=== PATIENT | male | born 1955 | race Caucasian/White ===

== ENCOUNTER 2017-07-29 11:24 | Inpatient (IN) | payer MEDICAID ==
--- NOTE | 2017-07-29 12:19 | EDM.PDOC ---
ED HPI GENERAL MEDICAL PROBLEM - General Chief Complaint: Respiratory Problem Stated Complaint: ILLNESS Time Seen by Provider: 07/29/17 12:11 Source of Information: Reports: Patient History Limitations: Reports: No Limitations - History of Present Illness INITIAL COMMENTS - FREE TEXT/NARRATIVE: pt has been more constipated. He is having more difficulty passing his urine. Onset: Gradual Duration: Day(s):, Other (Pt hs not been feeling well for about 2 weeks. When he is on the predisone and antibiotic he improves but then he gets worse. ) Location: Reports: Face, Chest Associated Symptoms: Reports: Weakness - Related Data Allergies Allergy/AdvReac Type Severity Reaction Status Date / Time Egg Derived Allergy Cannot Verified 07/29/17 11:42 Remember hylan G-F 20 [From Synvisc] Allergy Cannot Verified 07/29/17 11:42 Remember tramadol Allergy Cannot Verified 07/29/17 11:42 Remember celecoxib [From Celebrex] AdvReac Nausea Verified 07/29/17 11:42 Home Meds: Home Meds Albuterol [Ventolin HFA] 2 puff INH Q4H PRN 11/22/16 [History] Tamsulosin [Flomax] 0.4 mg PO BEDTIME #90 cap.er 11/23/16 [Rx] Past Medical History HEENT History: Reports: Impaired Vision Other HEENT History: reading glasses Respiratory History: Reports: COPD Musculoskeletal History: Reports: Fracture, Other (See Below) Other Musculoskeletal History: low back pain. L hip pain Psychiatric History: Reports: Depression Endocrine/Metabolic History: Reports: Obesity/BMI 30+ - Infectious Disease History Infectious Disease History: Reports: Chicken Pox, Measles - Past Surgical History GI Surgical History: Reports: Colonoscopy Musculoskeletal Surgical History: Reports: Knee Replacement, Other (See Below) Other Musculoskeletal Surgeries/Procedures:: R TKA 2016 Social & Family History - Family History HEENT: Reports: Impaired Vision Cardiac: Reports: Bypass, Heart Failure, [place] Respiratory: Reports: COPD OBGYN: Reports: Recurrent Spontaneous Musculoskeletal: Reports: Back pain, Chronic Neurological: Reports: Dementia Psychiatric: Reports: Bipolar - Tobacco Use Smoking Status *Q: Current Every Day Smoker Years of Tobacco use: 30 Packs/Tins Daily: 1 Used Tobacco, but Quit: No Second Hand Smoke Exposure: Yes - Caffeine Use Caffeine Use: Reports: Coffee - Recreational Drug Use Recreational Drug Use: No ED ROS GENERAL - Review of Systems Review Of Systems: See Below Constitutional: Reports: Malaise, Decreased Appetite, Other ( constipation) HEENT: Reports: Other (nasal stuffiness and feeling like he has ringing in his ears, slight dizziness. ) Respiratory: Reports: Shortness of Breath Cardiovascular: Reports: No Symptoms Endocrine: Reports: No Symptoms GI/Abdominal: Reports: Other (Pain in left lower abdoman. ) : Reports: No Symptoms Musculoskeletal: Reports: No Symptoms, Muscle Pain Neurological: Reports: No Symptoms Psychiatric: Reports: No Symptoms ED EXAM, GENERAL - Physical Exam Exam: See Below Free Text/Narrative:: pt arrived with nasal stuffiness and ringing in his ears. He does have pain in left abdoman which comes and goes 4 or 5 times daily. Exam Limited By: No Limitations General Appearance: Alert, Mild Distress Ears: Normal TMs Nose: Normal Inspection Throat/Mouth: Normal Inspection Head: Atraumatic Neck: Normal Inspection Respiratory/Chest: No Respiratory Distress Cardiovascular: Regular Rate, Rhythm GI/Abdominal: Other (Pt has tenderness in the left lower abdoman. He is particularly tender in the area close to the bladder. ) (Male) Exam: Deferred Rectal (Males) Exam: Deferred Back Exam: Normal Inspection Extremities: Normal Inspection Neurological: Alert, Oriented, Normal Cognition Psychiatric: Flat Affect Course - Vital Signs Last Recorded V/S: Last Vital Signs Temp 36.9 C 07/29/17 12:00 Pulse 119 H 07/29/17 12:00 Resp 20 07/29/17 12:00 BP 154/81 H 07/29/17 12:00 Pulse Ox 98 07/29/17 12:00 - Orders/Labs/Meds Orders: Active Orders 24 hr Category Date Time Status Abdomen Pelvis w Cont [CT] Stat Exams 07/29/17 13:15 Taken Chest 2V [CR] Stat Exams 07/29/17 12:20 Taken Sinus Less 3V [CR] Stat Exams 07/29/17 12:20 Taken Levofloxacin/Dextrose 5%-Water [Levaquin in D5W 500 MG/ Med 07/29/17 15:30 Ordered 100 ML] 500 mg Premix Bag 1 bag IV ONETIME Sodium Chloride 0.9% [Normal Saline] 1,000 ml Med 07/29/17 15:30 Ordered IV ASDIRECTED Sodium Chloride 0.9% [Normal Saline] 100 ml Med 07/29/17 13:30 Active IV ASDIRECTED Medication Orders Sodium Chloride (Normal Saline) 100 mls @ 3 mls/sec IV ASDIRECTED LUCERO Last Admin: 07/29/17 14:10 Dose: 3 mls/sec Sodium Chloride (Normal Saline) 1,000 mls @ 999 mls/hr IV ASDIRECTED LUCERO Levofloxacin/Dextrose 500 mg/ (Premix) 100 mls @ 100 mls/hr IV ONETIME ONE Stop: 07/29/17 16:29 Labs: Laboratory Tests 07/29/17 07/29/17 07/29/17 Range/Units 12:20 12:20 12:20 WBC 9.7 (4.5-11.0) K/uL RBC 4.56 (4.30-5.90) M/uL Hgb 14.6 (12.0-15.0) g/dL Hct 44.6 (40.0-54.0) % MCV 98 (80-98) fL MCH 32 H (27-31) pg MCHC 33 (32-36) % Plt Count 173 (150-400) K/uL Neut % (Auto) 79 H (36-66) % Lymph % (Auto) 11 L (24-44) % Gates % (Auto) 10 H (2-6) % Eos % (Auto) 0 L (2-4) % Baso % (Auto) 0 (0-1) % Sodium 136 L (140-148) mmol/L Potassium 4.6 (3.6-5.2) mmol/L Chloride 101 (100-108) mmol/L Carbon Dioxide 27 (21-32) mmol/L Anion Gap 12.6 (5.0-14.0) mmol/L BUN 17 (7-18) mg/dL Creatinine 1.1 (0.8-1.3) mg/dL Est Cr Clr Drug Dosing 79.70 mL/min Estimated GFR (MDRD) > 60 (>60) Glucose 132 H (74-106) mg/dL Calcium 8.7 (8.5-10.1) mg/dL Total Bilirubin 0.9 D (0.2-1.0) mg/dL AST 15 (15-37) U/L ALT 21 (12-78) U/L Alkaline Phosphatase 91 (46-116) U/L C-Reactive Protein 15.54 H (0.0-0.3) mg/dL Total Protein 7.2 (6.4-8.2) g/dL Albumin 3.2 L (3.4-5.0) g/dL Globulin 4.0 H (2.3-3.5) g/dL Albumin/Globulin Ratio 0.8 L (1.2-2.2) Urine Color Urine Appearance Urine pH (4.5-8.0) Ur Specific [place] (1.008-1.030) Urine Protein (NEGATIVE) mg/dL Urine Glucose (UA) (NEGATIVE) mg/dL Urine Ketones (NEGATIVE) mg/dL Urine Occult Blood (NEGATIVE) Urine Nitrite (NEGAITVE) Urine Bilirubin (NEGATIVE) Urine Urobilinogen (NORMAL) mg/dL Ur Leukocyte Esterase (NEGATIVE) Urine RBC (0-5) Urine WBC (0-5) Ur Epithelial Cells Amorphous Sediment Urine Bacteria Urine Mucus 07/29/17 Range/Units 13:38 WBC (4.5-11.0) K/uL RBC (4.30-5.90) M/uL Hgb (12.0-15.0) g/dL Hct (40.0-54.0) % MCV (80-98) fL MCH (27-31) pg MCHC (32-36) % Plt Count (150-400) K/uL Neut % (Auto) (36-66) % Lymph % (Auto) (24-44) % [place] % (Auto) (2-6) % Eos % (Auto) (2-4) % Baso % (Auto) (0-1) % Sodium (140-148) mmol/L Potassium (3.6-5.2) mmol/L Chloride (100-108) mmol/L Carbon Dioxide (21-32) mmol/L Anion Gap (5.0-14.0) mmol/L BUN (7-18) mg/dL Creatinine (0.8-1.3) mg/dL Est Cr Clr Drug Dosing mL/min Estimated GFR (MDRD) (>60) Glucose (74-106) mg/dL Calcium (8.5-10.1) mg/dL Total Bilirubin (0.2-1.0) mg/dL AST (15-37) U/L ALT (12-78) U/L Alkaline Phosphatase (46-116) U/L C-Reactive Protein (0.0-0.3) mg/dL Total Protein (6.4-8.2) g/dL Albumin (3.4-5.0) g/dL Globulin (2.3-3.5) g/dL Albumin/Globulin Ratio (1.2-2.2) Urine Color Yellow Urine Appearance Clear Urine pH 6.0 (4.5-8.0) Ur Specific [place] 1.015 (1.008-1.030) Urine Protein 30 H (NEGATIVE) mg/dL Urine Glucose (UA) Normal (NEGATIVE) mg/dL Urine Ketones Negative (NEGATIVE) mg/dL Urine Occult Blood Trace (NEGATIVE) Urine Nitrite Negative (NEGAITVE) Urine Bilirubin Small (NEGATIVE) Urine Urobilinogen 4 (NORMAL) mg/dL Ur Leukocyte Esterase Negative (NEGATIVE) Urine RBC 5-10 H (0-5) Urine WBC 0-5 (0-5) Ur Epithelial Cells Few Amorphous Sediment Not seen Urine Bacteria Not seen Urine Mucus Few Meds: Medications Generic Name Dose Route Start Last Admin Trade Name Freq PRN Reason Stop Dose Admin Sodium Chloride 100 mls @ 3 mls/sec 07/29/17 13:30 07/29/17 14:10 Normal Saline IV 3 mls/sec ASDIRECTED [facility] Administration Sodium Chloride 1,000 mls @ 999 mls/hr 07/29/17 15:30 Normal Saline IV ASDIRECTED LUCERO Levofloxacin/Dextrose 500 mg/ 100 mls @ 100 mls/hr 07/29/17 15:30 Premix IV 07/29/17 16:29 ONETIME ONE Discontinued Medications Generic Name Dose Route Start Last Admin Trade Name Freq PRN Reason Stop Dose Admin Iopamidol 150 ml 07/29/17 13:30 07/29/17 14:10 Isovue-300 (61%) IV 150 ml . DIRECTED [facility] Administration - Re-Assessments/Exams Free Text/Narrative Re-Assessment/Exam: 07/29/17 15:39 cbc was normal. his sinuses were clear but he has alot of swellin in the mucous membranes, His chest xray is clear. His crp is greater than 15. He had a cat scan of the abdoman pelvis which reveals a intramural abcess in the wall of the sigmoid colon from diverticulitis Departure - Departure Time of Disposition: 15:41 Disposition: Admitted As Inpatient 66 Condition: Fair Clinical Impression: Diverticulitis large intestine, Rhinitis - Discharge Information Referrals: Mat Sahu NP [Primary Care Provider] - Forms: ED Department Discharge Care Plan Goals: admit to Dr gaytan - My Orders Last 24 Hours: My Active Orders 07/29/17 12:20 Chest 2V [CR] Stat Sinus Less 3V [CR] Stat 07/29/17 13:15 Abdomen Pelvis w Cont [CT] Stat 07/29/17 13:30 Sodium Chloride 0.9% [Normal Saline] 100 ml IV ASDIRECTED 07/29/17 15:30 Levofloxacin/Dextrose 5%-Water [Levaquin in D5W 500 MG/100 ML] 500 mg Premix Bag 1 bag IV ONETIME Sodium Chloride 0.9% [Normal Saline] 1,000 ml IV ASDIRECTED - Assessment/Plan Last 24 Hours: My Active Orders 07/29/17 12:20 Chest 2V [CR] Stat Sinus Less 3V [CR] Stat 07/29/17 13:15 Abdomen Pelvis w Cont [CT] Stat 07/29/17 13:30 Sodium Chloride 0.9% [Normal Saline] 100 ml IV ASDIRECTED 07/29/17 15:30 Levofloxacin/Dextrose 5%-Water [Levaquin in D5W 500 MG/100 ML] 500 mg Premix Bag 1 bag IV ONETIME Sodium Chloride 0.9% [Normal Saline] 1,000 ml IV ASDIRECTED
[2017-07-29] MEDS ORDERED: Iopamidol 612 MG/ML 150 ML Bottle IV SCH (13:30)
[2017-07-29] MEDS ORDERED: Sodium Chloride 0.9% 100 ML IV SCH (13:30)
[2017-07-29] MEDS ORDERED: Sodium Chloride 0.9% 1,000 ML IV SCH (15:30)
[2017-07-29] MEDS ORDERED: Levofloxacin/Dextrose 5%-Water 500 MG in Premix Bag 1 BAG IV ONE (15:30)
[2017-07-29] MEDS ORDERED: Lactated Ringers 1,000 ML IV SCH (16:00)
[2017-07-29] MEDS ORDERED: Acetaminophen 325 MG Tab PO PRN (16:08)
[2017-07-29] MEDS ORDERED: Ondansetron 4 MG/2 ML SDV IV PRN (16:08)
[2017-07-29] MEDS ORDERED: Albuterol 8 GM Inhaler INH PRN (16:08)
[2017-07-29] MEDS ORDERED: oxyCODONE 5 MG Tab PO PRN (16:08)
[2017-07-29] MEDS ORDERED: HYDROmorphone 0.5 MG/0.5 ML Syringe IVPUSH PRN (16:08)
[2017-07-29] MEDS ORDERED: Sodium Chloride 0.9% 10 ML Syringe FLUSH PRN (16:08)
--- NOTE | 2017-07-29 16:10 | PCM.HP ---
H&P History of Present Illness - General Date of Service: 07/29/17 Admit Problem/Dx: Source of Information: Patient, Provider, RN Notes Reviewed History Limitations: Reports: No Limitations - History of Present Illness Initial Comments - Free Text/Narative: Mr. Doshi is a 61-year-old gentleman who is admitted through the emergency department with fever and abdominal pain secondary to diverticulitis with intramural abscess. Not felt well for the past several weeks, which he relates to intermittent episodes of vertigo. Over the past week has developed left lower quadrant abdominal pain that radiates across to the right abdomen. Pain is described as cramping sensation and seems to come and go, it is of moderate severity. He has had no diarrhea in fact reports that he is been somewhat, constipated. He denies any symptoms of nausea vomiting, but his appetite has been diminished. He is noted no precipitating or relieving factors. On evaluation in the emergency department his white blood cell count is normal, he is mild to moderately tachycardic. CT scan of the abdomen shows evidence of diverticulitis with an intramural diverticular abscess. Reviewed with the on- call surgeon Dr. Caraballo, because the abscess is intramural it does not require percutaneous drainage. - Related Data Allergies/Adverse Reactions: Allergies Allergy/AdvReac Type Severity Reaction Status Date / Time Egg Derived Allergy Cannot Verified 07/29/17 11:42 Remember hylan G-F 20 [From Synvisc] Allergy Cannot Verified 07/29/17 11:42 Remember tramadol Allergy Cannot Verified 07/29/17 11:42 Remember celecoxib [From Celebrex] AdvReac Nausea Verified 07/29/17 11:42 Home Medications: Home Meds Albuterol [Ventolin HFA] 2 puff INH Q4H PRN 11/22/16 [History] Tamsulosin [Flomax] 0.4 mg PO BEDTIME #90 cap.er 11/23/16 [Rx] Past Medical History HEENT History: Reports: Impaired Vision Other HEENT History: reading glasses Respiratory History: Reports: COPD Musculoskeletal History: Reports: Fracture, Other (See Below) Other Musculoskeletal History: low back pain. L hip pain Psychiatric History: Reports: Depression Endocrine/Metabolic History: Reports: Obesity/BMI 30+ - Infectious Disease History Infectious Disease History: Reports: Chicken Pox, Measles - Past Surgical History GI Surgical History: Reports: Colonoscopy Musculoskeletal Surgical History: Reports: Knee Replacement, Other (See Below) Other Musculoskeletal Surgeries/Procedures:: R TKA 2016 Social & Family History - Family History HEENT: Reports: Impaired Vision Cardiac: Reports: Bypass, Heart Failure, [place] Respiratory: Reports: COPD OBGYN: Reports: Recurrent Spontaneous Musculoskeletal: Reports: Back pain, Chronic Neurological: Reports: Dementia Psychiatric: Reports: Bipolar - Tobacco Use Smoking Status *Q: Current Every Day Smoker Years of Tobacco use: 30 Packs/Tins Daily: 1 Used Tobacco, but Quit: No Second Hand Smoke Exposure: Yes - Caffeine Use Caffeine Use: Reports: Coffee - Recreational Drug Use Recreational Drug Use: No H&P Review of Systems - Review of Systems: Review Of Systems: See Below General: Reports: Fever, Chills, Weakness, Decreased Appetite HEENT: Reports: No Symptoms Pulmonary: Reports: No Symptoms Cardiovascular: Reports: No Symptoms Gastrointestinal: Reports: Abdominal Pain, Anorexia. Denies: Black Stool, Bloody Stool, Diarrhea, Difficulty Swallowing, Distension, Nausea, Vomiting Genitourinary: Reports: Retention. Denies: Dysuria, Frequency, Burning, Pain Musculoskeletal: Reports: No Symptoms Skin: Reports: No Symptoms Psychiatric: Reports: No Symptoms Neurological: Reports: No Symptoms Hematologic/Lymphatic: Reports: No Symptoms Immunologic: Reports: No Symptoms Exam - Exam Exam: See Below - Vital Signs Vital Signs: Last Vital Signs Temp 98.5 F 07/29/17 12:00 Pulse 119 H 07/29/17 12:00 Resp 20 07/29/17 12:00 BP 154/81 H 07/29/17 12:00 Pulse Ox 98 07/29/17 12:00 Weight: 276 lb 3.827 oz - Exam Quality Assessment: DVT Prophylaxis General: Alert, Oriented, Cooperative, Moderate Distress HEENT: Conjunctiva Clear, Hearing Intact, Normal Nasal Septum, Posterior Pharynx Clear, Pupils Equal. No: Mucosa Moist & [place] Neck: Supple, Trachea Midline, +2 Carotid Pulse wo Bruit Lungs: Clear to Auscultation, Normal Respiratory Effort Cardiovascular: Regular Rate, Regular Rhythm, Normal S1, Normal S2. No: Systolic Murmur, Diastolic Murmur GI/Abdominal Exam: Soft, No Organomegaly, Tender. No: Distended, Guarding, Rigid, Rebound Back Exam: Normal Inspection, Full Range of Motion Extremities: Non-Tender, No Pedal Edema Skin: Warm, Dry, Intact Neurological: Cranial Nerves Intact, Strength Equal Bilateral, Normal Speech, Normal Tone, Sensation Intact. No: Focal Deficit Neuro Extensive - Mental Status: Alert, Oriented x3, Normal Mood/Affect, Normal Cognition, Memory Intact - Patient Data Lab Results Last 24 hrs: Laboratory Results - last 24 hr 07/29/17 07/29/17 07/29/17 Range/Units 12:20 12:20 12:20 WBC 9.7 (4.5-11.0) K/uL RBC 4.56 (4.30-5.90) M/uL Hgb 14.6 (12.0-15.0) g/dL Hct 44.6 (40.0-54.0) % MCV 98 (80-98) fL MCH 32 H (27-31) pg MCHC 33 (32-36) % Plt Count 173 (150-400) K/uL Neut % (Auto) 79 H (36-66) % Lymph % (Auto) 11 L (24-44) % Lares % (Auto) 10 H (2-6) % Eos % (Auto) 0 L (2-4) % Baso % (Auto) 0 (0-1) % Sodium 136 L (140-148) mmol/L Potassium 4.6 (3.6-5.2) mmol/L Chloride 101 (100-108) mmol/L Carbon Dioxide 27 (21-32) mmol/L Anion Gap 12.6 (5.0-14.0) mmol/L BUN 17 (7-18) mg/dL Creatinine 1.1 (0.8-1.3) mg/dL Est Cr Clr Drug Dosing 79.70 mL/min Estimated GFR (MDRD) > 60 (>60) Glucose 132 H (74-106) mg/dL Calcium 8.7 (8.5-10.1) mg/dL Total Bilirubin 0.9 D (0.2-1.0) mg/dL AST 15 (15-37) U/L ALT 21 (12-78) U/L Alkaline Phosphatase 91 (46-116) U/L C-Reactive Protein 15.54 H (0.0-0.3) mg/dL Total Protein 7.2 (6.4-8.2) g/dL Albumin 3.2 L (3.4-5.0) g/dL Globulin 4.0 H (2.3-3.5) g/dL Albumin/Globulin Ratio 0.8 L (1.2-2.2) Urine Color Urine Appearance Urine pH (4.5-8.0) Ur Specific [place] (1.008-1.030) Urine Protein (NEGATIVE) mg/dL Urine Glucose (UA) (NEGATIVE) mg/dL Urine Ketones (NEGATIVE) mg/dL Urine Occult Blood (NEGATIVE) Urine Nitrite (NEGAITVE) Urine Bilirubin (NEGATIVE) Urine Urobilinogen (NORMAL) mg/dL Ur Leukocyte Esterase (NEGATIVE) Urine RBC (0-5) Urine WBC (0-5) Ur Epithelial Cells Amorphous Sediment Urine Bacteria Urine Mucus 07/29/17 Range/Units 13:38 WBC (4.5-11.0) K/uL RBC (4.30-5.90) M/uL Hgb (12.0-15.0) g/dL Hct (40.0-54.0) % MCV (80-98) fL MCH (27-31) pg MCHC (32-36) % Plt Count (150-400) K/uL Neut % (Auto) (36-66) % Lymph % (Auto) (24-44) % Lares % (Auto) (2-6) % Eos % (Auto) (2-4) % Baso % (Auto) (0-1) % Sodium (140-148) mmol/L Potassium (3.6-5.2) mmol/L Chloride (100-108) mmol/L Carbon Dioxide (21-32) mmol/L Anion Gap (5.0-14.0) mmol/L BUN (7-18) mg/dL Creatinine (0.8-1.3) mg/dL Est Cr Clr Drug Dosing mL/min Estimated GFR (MDRD) (>60) Glucose (74-106) mg/dL Calcium (8.5-10.1) mg/dL Total Bilirubin (0.2-1.0) mg/dL AST (15-37) U/L ALT (12-78) U/L Alkaline Phosphatase (46-116) U/L C-Reactive Protein (0.0-0.3) mg/dL Total Protein (6.4-8.2) g/dL Albumin (3.4-5.0) g/dL Globulin (2.3-3.5) g/dL Albumin/Globulin Ratio (1.2-2.2) Urine Color Yellow Urine Appearance Clear Urine pH 6.0 (4.5-8.0) Ur Specific [place] 1.015 (1.008-1.030) Urine Protein 30 H (NEGATIVE) mg/dL Urine Glucose (UA) Normal (NEGATIVE) mg/dL Urine Ketones Negative (NEGATIVE) mg/dL Urine Occult Blood Trace (NEGATIVE) Urine Nitrite Negative (NEGAITVE) Urine Bilirubin Small (NEGATIVE) Urine Urobilinogen 4 (NORMAL) mg/dL Ur Leukocyte Esterase Negative (NEGATIVE) Urine RBC 5-10 H (0-5) Urine WBC 0-5 (0-5) Ur Epithelial Cells Few Amorphous Sediment Not seen Urine Bacteria Not seen Urine Mucus Few Result Diagrams: 07/29/17 12:20 07/29/17 12:20 *Q Meaningful Use (ADM) - VTE *Q VTE Criteria *Q: - VTE Risk Assess *Q Each Risk Factor Represents 1 Point: Obesity ( BMI > 25 kg/m2) Total Score 1 Point Risk Factors: 1 Each Risk Factor Represents 2 Points: Age 60 - 74 Years Total Score 2 Point Risk Factors: 2 Each Risk Factor Represents 3 Points: None Total Score 3 Point Risk Factors: 0 Each Risk Factor Represents 5 Points: None Total Score 5 Point Risk Factors: 0 Venous Thromboembolism Risk Factor Score *Q: 3 - Stroke *Q Stroke Criteria *Q: - AMI *Q AMI Criteria *Q: Problem List Initiated/Reviewed/Updated: Yes Orders Last 24hrs: Active Orders 24 hr Category Date Time Status Patient Status Manage Transfer [TRANSFER] Routine ADT 07/29/17 15:52 Ordered Abdomen Pelvis w Cont [CT] Stat Exams 07/29/17 13:15 Taken Chest 2V [CR] Stat Exams 07/29/17 12:20 Taken Sinus Less 3V [CR] Stat Exams 07/29/17 12:20 Taken Ampicillin/Sulbactam Na [Unasyn] 3 gm Med 07/29/17 16:00 Ordered Sodium Chloride 0.9% [Normal Saline] 100 ml IV Q6H Lactated Ringers [Ringers, Lactated] 1,000 ml Med 07/29/17 16:00 Ordered IV ASDIRECTED Levofloxacin/Dextrose 5%-Water [Levaquin in D5W 500 MG/ Med 07/29/17 15:30 Active 100 ML] 500 mg Premix Bag 1 bag IV ONETIME Sodium Chloride 0.9% [Normal Saline] 1,000 ml Med 07/29/17 15:30 Active IV ASDIRECTED Sodium Chloride 0.9% [Normal Saline] 100 ml Med 07/29/17 13:30 Active IV ASDIRECTED Resuscitation Status Routine Resus Stat 07/29/17 15:53 Ordered Medication Orders Sodium Chloride (Normal Saline) 100 mls @ 3 mls/sec IV ASDIRECTED LUCERO Last Admin: 07/29/17 14:10 Dose: 3 mls/sec Sodium Chloride (Normal Saline) 1,000 mls @ 999 mls/hr IV ASDIRECTED LUCERO Levofloxacin/Dextrose 500 mg/ (Premix) 100 mls @ 100 mls/hr IV ONETIME ONE Stop: 07/29/17 16:29 Ampicillin Sodium/Sulbactam (Sodium 3 gm/ Sodium Chloride) 100 mls @ 200 mls/ hr IV Q6H LUCERO Lactated Ringer's (Ringers, Lactated) 1,000 mls @ 500 mls/hr IV ASDIRECTED LUCERO Stop: 07/29/17 20:01 Assessment/Plan Comment:: ASSESSMENT AND PLAN DIVERTICULITIS WITH AN INTRAMURAL ABSCESS-symptoms present over the past several days, significantly worse today. He has developed marked weakness and reports fever and chills at home with diaphoresis. Appetite has been severely decreased over the past 24 hours. White blood cell count is normal, CT scan documents diverticulitis and abscess. -IV fluids for hydration -Clear liquid diet -Unasyn 3 g IV every 6 hours -Consult Dr. Caraballo for surgical follow-up and assistance in management BPH WITH BLADDER OUTLET OBSTRUCTION-he reports recent difficulty with passing urine -Monitor urine output and monitor bladder with bladder scan -Continue current therapy with Flomax BENIGN POSITIONAL VERTIGO-symptoms over the past several weeks MAINTENANCE ISSUES -DVT prophylaxis; Lovenox 40 mg subcutaneous daily -GI prophylaxis; not indicated -Cortes catheter; not yet indicated -Nutrition; clear liquid diet -Nicotine dependence; [id number] smoking history, denies need for nicotine patch CODE STATUS-FULL CODE ADMISSION STATUS-patient will be admitted to inpatient status, expect at least a 2 night hospital stay for evaluation and management of problems as outlined above. At the time of this admission I do not reasonably expected evaluation and management of this problem will require more than a 96 hour hospital stay. DISPOSITION-anticipate discharge to home after the hospital stay. PRIMARY CARE PROVIDER-Adonis Sahu
[2017-07-29] MEDS ORDERED: Ampicillin/Sulbactam Na 3 GM Vial ONE (16:20)
[2017-07-29] MEDS ORDERED: Sodium Chloride 0.9% 100 ML ONE (16:22)
[2017-07-29] MEDS: Ampicillin/Sulbactam Na 3 GM in Sodium Chloride 0.9% 100 ML IV SCH ×2 (16:36→21:48)
[2017-07-29] MEDS: Enoxaparin 40 MG/0.4 ML Syringe SUBCUT SCH (17:22)
[2017-07-29] MEDS: Lactated Ringers 1,000 ML IV SCH (19:22)
[2017-07-29] MEDS: Tamsulosin 0.4 MG Cap.ER PO SCH (20:33)
[2017-07-29] MEDS: Fluticasone Propionate Nasal Spray 16 GM Bottle NASBOTH SCH (20:37)
[2017-07-30] MEDS: Lactated Ringers 1,000 ML IV SCH (02:50)
[2017-07-30] MEDS: Ampicillin/Sulbactam Na 3 GM in Sodium Chloride 0.9% 100 ML IV SCH ×4 (04:56→21:03)
[2017-07-30] MEDS: Fluticasone Propionate Nasal Spray 16 GM Bottle NASBOTH SCH (08:07)
--- NOTE | 2017-07-30 10:40 | PCM.PN ---
- General Info Date of Service: 07/30/17 - Review of Systems General: Denies: Fever Gastrointestinal: Reports: Abdominal Pain. Denies: Diarrhea Systems Review Comment:: no acute events overnight. Ongoing mild left lower quadrant pain but no acute pains. No diarrhea. White blood cell count is normal and he has not had any fevers. Tolerating clear liquids. - Patient Data Vitals - Most Recent: Last Vital Signs Temp 37.2 C 07/30/17 08:01 Pulse 92 07/30/17 08:01 Resp 16 07/30/17 08:01 BP 146/86 H 07/30/17 08:01 Pulse Ox 96 07/30/17 08:01 Weight - Most Recent: 125.3 kg I&O - Last 24 Hours: Intake & Output 07/29/17 07/30/17 07/30/17 22:59 06:59 14:59 Intake Total 700 2300 840 Output Total 200 1150 300 Balance 500 1150 540 Lab Results Last 24 Hours: Laboratory Results - last 24 hr 07/30/17 07/30/17 Range/Units 06:05 06:05 WBC 7.1 (4.5-11.0) K/uL RBC 4.01 L (4.30-5.90) M/uL Hgb 12.6 D (12.0-15.0) g/dL Hct 39.3 L (40.0-54.0) % MCV 98 (80-98) fL MCH 31 (27-31) pg MCHC 32 (32-36) % Plt Count 162 (150-400) K/uL Neut % (Auto) 73 H (36-66) % Lymph % (Auto) 16 L (24-44) % [place] % (Auto) 11 H (2-6) % Eos % (Auto) 1 L (2-4) % Baso % (Auto) 0 (0-1) % Sodium 139 L (140-148) mmol/L Potassium 4.0 (3.6-5.2) mmol/L Chloride 105 (100-108) mmol/L Carbon Dioxide 27 (21-32) mmol/L Anion Gap 11.0 (5.0-14.0) mmol/L BUN 12 (7-18) mg/dL Creatinine 1.0 (0.8-1.3) mg/dL Est Cr Clr Drug Dosing 87.67 mL/min Estimated GFR (MDRD) > 60 (>60) Glucose 107 H (74-106) mg/dL Calcium 8.5 (8.5-10.1) mg/dL Med Orders - Current: Current Medications Acetaminophen (Tylenol) 650 mg PO Q4H PRN PRN Reason: Pain (Mild 1-3)/fever Last Admin: 07/29/17 23:17 Dose: 650 mg Albuterol (Ventolin Hfa) 0 gm INH Q4H PRN PRN Reason: Shortness of Breath Enoxaparin Sodium (Lovenox) 40 mg SUBCUT DAILY@1700 [facility] Last Admin: 07/29/17 17:22 Dose: 40 mg Fluticasone Propionate (Flonase) 0 gm NASBOTH DAILY [facility] Last Admin: 07/30/17 08:07 Dose: 2 spray Hydromorphone HCl (Dilaudid) 0.5 mg IVPUSH Q2H PRN PRN Reason: Pain Ampicillin Sodium/Sulbactam (Sodium 3 gm/ Sodium Chloride) 100 mls @ 200 mls/ hr IV Q6H [facility] Last Admin: 07/30/17 09:40 Dose: 200 mls/hr Lactated Ringer's (Ringers, Lactated) 1,000 mls @ 125 mls/hr IV ASDIRECTED [facility] Last Admin: 07/30/17 02:50 Dose: 125 mls/hr Ondansetron HCl (Zofran) 4 mg IV Q4H PRN PRN Reason: Nausea/Vomiting Oxycodone HCl (Oxycodone) 5 mg PO Q4H PRN PRN Reason: Pain (moderate 4-6) Sodium Chloride (Saline Flush) 10 ml FLUSH ASDIRECTED PRN PRN Reason: Keep Vein Open Tamsulosin HCl (Flomax) 0.4 mg PO BEDTIME [facility] Last Admin: 07/29/17 20:33 Dose: 0.4 mg Discontinued Medications Ampicillin Sodium/Sulbactam Sodium (Unasyn) Confirm Administered Dose 3 gm .ROUTE .STK-MED ONE Stop: 07/29/17 16:21 Last Admin: 07/29/17 16:37 Dose: Not Given Sodium Chloride (Normal Saline) 100 mls @ 3 mls/sec IV ASDIRECTED [facility] Last Admin: 07/29/17 14:10 Dose: 3 mls/sec Sodium Chloride (Normal Saline) 1,000 mls @ 999 mls/hr IV ASDIRECTED [facility] Levofloxacin/Dextrose 500 mg/ (Premix) 100 mls @ 100 mls/hr IV ONETIME ONE Stop: 07/29/17 16:29 Last Admin: 07/29/17 16:30 Dose: Not Given Lactated Ringer's (Ringers, Lactated) 1,000 mls @ 500 mls/hr IV ASDIRECTED [facility] Stop: 07/29/17 20:01 Last Admin: 07/29/17 16:36 Dose: 500 mls/hr Sodium Chloride (Normal Saline) Confirm Administered Dose 100 mls @ as directed .ROUTE .STK-MED ONE Stop: 07/29/17 16:23 Last Admin: 07/29/17 16:51 Dose: 100 ml Iopamidol (Isovue-300 (61%)) 150 ml IV . DIRECTED [facility] Last Admin: 07/29/17 14:10 Dose: 150 ml - Exam Quality Assessment: No: Supplemental Oxygen General: Alert, Oriented, Cooperative, No Acute Distress Neck: Supple Lungs: Normal Respiratory Effort GI/Abdominal Exam: Normal Bowel Sounds, Soft, No Distention, Guarding (mild), Tender (LLQ) Extremities: No Pedal Edema Skin: Warm, Dry Psy/Mental Status: Alert, Normal Affect - Problem List Review Problem List Initiated/Reviewed/Updated: Yes - My Orders Last 24 Hours: My Active Orders 07/30/17 10:45 Lactated Ringers [Ringers, Lactated] 1,000 ml IV ASDIRECTED - Plan Plan:: ASSESSMENT AND PLAN DIVERTICULITIS WITH AN INTRAMURAL ABSCESS - pain is a little better today with no severe wavelike pain. No fevers. White count still normal. patient will need several days of IV antibiotics before attempted transition to oral antibiotics. -continue IV fluids -Clear liquid diet -Unasyn 3 g IV every 6 hours -Consult Dr. Caraballo for surgical follow-up and assistance in management BPH WITH BLADDER OUTLET OBSTRUCTION - he reports recent difficulty with passing urine, no major issues during the hospital stay so far. -Monitor urine output and monitor bladder with bladder scan -Continue current therapy with Flomax BENIGN POSITIONAL VERTIGO - symptoms over the past several weeks. he does have cerumen impaction on physical examination. -Debrox drops today and will attempt to remove tomorrow MAINTENANCE ISSUES -DVT prophylaxis; Lovenox 40 mg subcutaneous daily -GI prophylaxis; not indicated -Cortes catheter; not yet indicated -Nutrition; clear liquid diet -Nicotine dependence; [id number] smoking history, denies need for nicotine patch DISPOSITION - anticipate discharge to home after the hospital stay. Mario Nassar M.D.
[2017-07-30] MEDS ORDERED: Lactated Ringers 1,000 ML IV SCH (10:45)
--- NOTE | 2017-07-30 16:26 | PCM.CONS ---
H&P History of Present Illness - General Date of Service: 07/30/17 Admit Problem/Dx: Source of Information: Patient, Provider History Limitations: Reports: No Limitations - History of Present Illness Initial Comments - Free Text/Narative: This 61 year old white male says he felt dizzy and next thing he knew he was in the hospital. He says that yesterday he had significant left lower quadrant abdominal pain with guarding, today it is much improved. He has had a small bowel movement and is passing gas. He was found on CT of his abdomen/pelvis to have a 2.4 cm in maximum dimension diverticular abscess in the wall of his sigmoid colon. No free perforation. He was admitted and placed on IV antibiotics. Onset of Symptoms: Reports: Other Symptom Onset Date: 07/29/17 Location: Reports: Abdomen Quality: Reports: Sharp Severity: Moderate Improves with: Reports: Immobilization Worsens with: Reports: Movement Associated Symptoms: Reports: No Other Symptoms - Related Data Allergies/Adverse Reactions: Allergies Allergy/AdvReac Type Severity Reaction Status Date / Time Egg Derived Allergy Cannot Verified 07/29/17 11:42 Remember hylan G-F 20 [From Synvisc] Allergy Cannot Verified 07/29/17 11:42 Remember tramadol Allergy Cannot Verified 07/29/17 11:42 Remember celecoxib [From Celebrex] AdvReac Nausea Verified 07/29/17 11:42 Home Medications: Home Meds Albuterol [Ventolin HFA] 2 puff INH Q4H PRN 11/22/16 [History] Tamsulosin [Flomax] 0.4 mg PO BEDTIME #90 cap.er 11/23/16 [Rx] Past Medical History HEENT History: Reports: Impaired Vision Other HEENT History: reading glasses Respiratory History: Reports: COPD Musculoskeletal History: Reports: Fracture, Other (See Below) Other Musculoskeletal History: low back pain. L hip pain Psychiatric History: Reports: Depression Endocrine/Metabolic History: Reports: Obesity/BMI 30+ - Infectious Disease History Infectious Disease History: Reports: Chicken Pox, Measles - Past Surgical History GI Surgical History: Reports: Colonoscopy Musculoskeletal Surgical History: Reports: Knee Replacement, Other (See Below) Other Musculoskeletal Surgeries/Procedures:: R TKA 2016 Social & Family History - Family History HEENT: Reports: Impaired Vision Cardiac: Reports: Bypass, Heart Failure, DC Respiratory: Reports: COPD OBGYN: Reports: Recurrent Spontaneous Musculoskeletal: Reports: Back pain, Chronic Neurological: Reports: Dementia Psychiatric: Reports: Bipolar - Tobacco Use Smoking Status *Q: Current Every Day Smoker Years of Tobacco use: 30 Packs/Tins Daily: 1 Used Tobacco, but Quit: No Second Hand Smoke Exposure: Yes - Caffeine Use Caffeine Use: Reports: Coffee, Soda Other Caffeine Use: 4-5 CUPS COFFEE /DAY - Recreational Drug Use Recreational Drug Use: No H&P Review of Systems - Review of Systems: Review Of Systems: See Below General: Reports: No Symptoms HEENT: Reports: No Symptoms Pulmonary: Reports: No Symptoms Cardiovascular: Reports: No Symptoms Gastrointestinal: Reports: Abdominal Pain (Less pain. ) Genitourinary: Reports: Frequency Musculoskeletal: Reports: No Symptoms Skin: Reports: No Symptoms Psychiatric: Reports: No Symptoms Neurological: Reports: No Symptoms Hematologic/Lymphatic: Reports: No Symptoms Immunologic: Reports: No Symptoms Exam - Exam Exam: See Below - Vital Signs Vital Signs: Last Vital Signs Temp 99.4 F 07/30/17 15:00 Pulse 95 07/30/17 15:00 Resp 18 07/30/17 15:00 BP 105/57 L 07/30/17 15:00 Pulse Ox 95 07/30/17 15:00 Weight: 276 lb 3.827 oz - Exam General: Alert, Oriented, Cooperative Lungs: Clear to Auscultation, Normal Respiratory Effort Cardiovascular: Regular Rate, Regular Rhythm GI/Abdominal Exam: Normal Bowel Sounds, Soft, Tender (Less tender in his left lower quadrant. ) Skin: Warm, Dry, Intact Neuro Extensive - Mental Status: Alert, Oriented x3, Normal Mood/Affect, Normal Cognition, Memory Intact Psychiatric: Alert, Normal Affect, Normal Mood - Patient Data Lab Results Last 24 hrs: Laboratory Results - last 24 hr 07/30/17 07/30/17 Range/Units 06:05 06:05 WBC 7.1 (4.5-11.0) K/uL RBC 4.01 L (4.30-5.90) M/uL Hgb 12.6 D (12.0-15.0) g/dL Hct 39.3 L (40.0-54.0) % MCV 98 (80-98) fL MCH 31 (27-31) pg MCHC 32 (32-36) % Plt Count 162 (150-400) K/uL Neut % (Auto) 73 H (36-66) % Lymph % (Auto) 16 L (24-44) % [place] % (Auto) 11 H (2-6) % Eos % (Auto) 1 L (2-4) % Baso % (Auto) 0 (0-1) % Sodium 139 L (140-148) mmol/L Potassium 4.0 (3.6-5.2) mmol/L Chloride 105 (100-108) mmol/L Carbon Dioxide 27 (21-32) mmol/L Anion Gap 11.0 (5.0-14.0) mmol/L BUN 12 (7-18) mg/dL Creatinine 1.0 (0.8-1.3) mg/dL Est Cr Clr Drug Dosing 87.67 mL/min Estimated GFR (MDRD) > 60 (>60) Glucose 107 H (74-106) mg/dL Calcium 8.5 (8.5-10.1) mg/dL Result Diagrams: 07/30/17 06:05 07/30/17 06:05 Consult PN Assessment/Plan Procedures: Procedures BLOOD TYPING SEROLOGIC ABO (11/22/16) BLOOD TYPING SEROLOGIC RH(D) (11/22/16) CHEST X-RAY 2VW FRONTAL&LATL (10/05/16) COMPLETE CBC AUTOMATED (11/22/16) COMPLETE CBC W/AUTO DIFF WBC (11/22/16) COMPREHEN METABOLIC PANEL (11/22/16) CULTURE OTHR SPECIMN AEROBIC (10/05/16) DRAIN/INJ JOINT/BURSA W/O US (02/23/17) EXTREMITY STUDY (05/19/15) FLUOROSCOPE EXAM EXTENSIVE (11/22/16) GAIT TRAINING THERAPY (11/22/16) INJECT SPINE LUMBAR/SACRAL (04/26/16) MANUAL THERAPY 1/> REGIONS (10/02/16) MEASURE BLOOD OXYGEN LEVEL (11/22/16) MECHANICAL TRACTION THERAPY (03/12/13) METABOLIC PANEL TOTAL CA (11/22/16) NEEDLE LOCALIZATION BY XRAY (02/23/17) NJX INTERLAMINAR LMBR/SAC (09/13/16) OFFICE/OUTPATIENT VISIT EST (11/16/16) OFFICE/OUTPATIENT VISIT EST (11/06/16) OT EVAL LOW COMPLEX 30 MIN (11/22/16) POSTOP FOLLOW-UP VISIT (12/07/16) PROTHROMBIN TIME (10/05/16) PT EVAL MOD COMPLEX 30 MIN (11/22/16) PT EVALUATION (03/14/16) RBC ANTIBODY SCREEN (11/22/16) REMOVE SPINE LAMINA 1 LMBR (11/22/16) ROUTINE VENIPUNCTURE (11/22/16) SELF CARE MNGMENT TRAINING (11/22/16) THERAPEUTIC ACTIVITIES (11/22/16) THERAPEUTIC EXERCISES (10/02/16) ULTRASOUND THERAPY (04/11/16) US URINE CAPACITY MEASURE (11/22/16) X-RAY EXAM HIP UNI 2-3 VIEWS (02/12/17) X-RAY EXAM L-2 SPINE 4/>VWS (10/05/16) (1) Diverticulitis large intestine SNOMED Code(s): 1984321 Code(s): K57.32 - DVTRCLI OF LG INT W/O PERFORATION OR ABSCESS W/O BLEEDING Current Visit: Yes Qualifiers: Diverticulitis complication: with abscess Problem List Initiated/Reviewed/Updated: Yes Plan: Agree with plan. When he is better he should undergo a colonoscopy.
[2017-07-30] MEDS: Enoxaparin 40 MG/0.4 ML Syringe SUBCUT SCH (16:44)
[2017-07-30] MEDS: Tamsulosin 0.4 MG Cap.ER PO SCH (20:51)
[2017-07-30] MEDS: Carbamide Peroxide 6.5% Otic Soln 15 ML Bottle EARLF SCH (20:57)
[2017-07-31] MEDS: Ampicillin/Sulbactam Na 3 GM in Sodium Chloride 0.9% 100 ML IV SCH ×4 (03:14→21:40)
[2017-07-31] MEDS ORDERED: Polyethylene Glycol 3350 Powder 17 GM Packet PO PRN (08:27)
[2017-07-31] MEDS: Fluticasone Propionate Nasal Spray 16 GM Bottle NASBOTH SCH (09:07)
[2017-07-31] MEDS: Carbamide Peroxide 6.5% Otic Soln 15 ML Bottle EARLF SCH ×2 (09:08→20:20)
--- NOTE | 2017-07-31 10:31 | PCM.PN ---
- General Info Date of Service: 07/31/17 Functional Status: Reports: Pain Controlled, Tolerating Diet - Review of Systems General: Reports: Fever Gastrointestinal: Reports: Abdominal Pain Systems Review Comment:: No acute events overnight. Pain is a little better today but has not resolved. He did have a bowel movement yesterday which was very hard. He did have a fever overnight. No nausea or vomiting. Tolerating current antibiotics. Tolerating clear liquids well. - Patient Data Vitals - Most Recent: Last Vital Signs Temp 36.8 C 07/31/17 07:00 Pulse 89 07/31/17 07:00 Resp 18 07/31/17 07:00 BP 122/83 07/31/17 07:00 Pulse Ox 97 07/31/17 07:00 Weight - Most Recent: 121.2 kg I&O - Last 24 Hours: Intake & Output 07/30/17 07/31/17 07/31/17 22:59 06:59 14:59 Intake Total 1587 601 240 Output Total 900 750 Balance 687 -149 240 Med Orders - Current: Current Medications Acetaminophen (Tylenol) 650 mg PO Q4H PRN PRN Reason: Pain (Mild 1-3)/fever Last Admin: 07/29/17 23:17 Dose: 650 mg Albuterol (Ventolin Hfa) 0 gm INH Q4H PRN PRN Reason: Shortness of Breath Carbamide Perox/Anhydrous Glycerin (Debrox 6.5% Otic Soln) 0 ml EARLF BID [facility] Last Admin: 07/31/17 09:08 Dose: 10 drop Enoxaparin Sodium (Lovenox) 40 mg SUBCUT DAILY@1700 [facility] Last Admin: 07/30/17 16:44 Dose: 40 mg Fluticasone Propionate (Flonase) 0 gm NASBOTH DAILY [facility] Last Admin: 07/31/17 09:07 Dose: 2 spray Hydromorphone HCl (Dilaudid) 0.5 mg IVPUSH Q2H PRN PRN Reason: Pain Ampicillin Sodium/Sulbactam (Sodium 3 gm/ Sodium Chloride) 100 mls @ 200 mls/ hr IV Q6H [facility] Last Admin: 07/31/17 03:14 Dose: 200 mls/hr Ondansetron HCl (Zofran) 4 mg IV Q4H PRN PRN Reason: Nausea/Vomiting Oxycodone HCl (Oxycodone) 5 mg PO Q4H PRN PRN Reason: Pain (moderate 4-6) Polyethylene Glycol (Miralax) 17 gm PO DAILY PRN PRN Reason: Constipation Last Admin: 07/31/17 09:08 Dose: 17 gm Senna/Docusate Sodium (Senna Plus) 1 tab PO BID [facility] Sodium Chloride (Saline Flush) 10 ml FLUSH ASDIRECTED PRN PRN Reason: Keep Vein Open Tamsulosin HCl (Flomax) 0.4 mg PO BEDTIME [facility] Last Admin: 07/30/17 20:51 Dose: 0.4 mg Discontinued Medications Ampicillin Sodium/Sulbactam Sodium (Unasyn) Confirm Administered Dose 3 gm .ROUTE .STK-MED ONE Stop: 07/29/17 16:21 Last Admin: 07/29/17 16:37 Dose: Not Given Sodium Chloride (Normal Saline) 100 mls @ 3 mls/sec IV ASDIRECTED [facility] Last Admin: 07/29/17 14:10 Dose: 3 mls/sec Sodium Chloride (Normal Saline) 1,000 mls @ 999 mls/hr IV ASDIRECTED [facility] Levofloxacin/Dextrose 500 mg/ (Premix) 100 mls @ 100 mls/hr IV ONETIME ONE Stop: 07/29/17 16:29 Last Admin: 07/29/17 16:30 Dose: Not Given Lactated Ringer's (Ringers, Lactated) 1,000 mls @ 500 mls/hr IV ASDIRECTED [facility] Stop: 07/29/17 20:01 Last Admin: 07/29/17 16:36 Dose: 500 mls/hr Lactated Ringer's (Ringers, Lactated) 1,000 mls @ 125 mls/hr IV ASDIRECTED [facility] Last Admin: 07/30/17 02:50 Dose: 125 mls/hr Sodium Chloride (Normal Saline) Confirm Administered Dose 100 mls @ as directed .ROUTE .STK-MED ONE Stop: 07/29/17 16:23 Last Admin: 07/29/17 16:51 Dose: 100 ml Lactated Ringer's (Ringers, Lactated) 1,000 mls @ 50 mls/hr IV ASDIRECTED [facility] Last Admin: 07/30/17 13:14 Dose: 50 mls/hr Iopamidol (Isovue-300 (61%)) 150 ml IV . DIRECTED [facility] Last Admin: 07/29/17 14:10 Dose: 150 ml - Exam Quality Assessment: No: Supplemental Oxygen General: Alert, Oriented, Cooperative, No Acute Distress Neck: Supple Lungs: Normal Respiratory Effort GI/Abdominal Exam: Soft, No Distention, Tender (mild LLQ) Extremities: No Pedal Edema Skin: Warm, Dry Psy/Mental Status: Alert, Normal Affect - Problem List Review Problem List Initiated/Reviewed/Updated: Yes - My Orders Last 24 Hours: My Active Orders 07/30/17 21:00 Carbamide Peroxide [Debrox 6.5% Otic Soln] 0 ml EARLF BID 07/31/17 08:27 Polyethylene Glycol 3350 [MiraLAX] 17 gm PO DAILY PRN 07/31/17 09:00 Docusate Sodium/Sennosides [Senna Plus] 1 tab PO BID 07/31/17 10:45 Lactated Ringers [Ringers, Lactated] 1,000 ml IV ASDIRECTED 07/31/17 Lunch Full Liquid Diet [DIET] 08/01/17 05:00 BASIC METABOLIC PANEL,BMP [CHEM] Timed CBC W/O DIFF,HEMOGRAM [HEME] Timed (1) - Plan Plan:: ASSESSMENT AND PLAN DIVERTICULITIS WITH AN INTRAMURAL ABSCESS - pain continues to improve but he did have a fever overnight. Tolerating diet. -continue IV fluids -Advance to full liquids -Unasyn 3 g IV every 6 hours, planning an additional 24-48 hours of IV antibiotics with abscess present -Consult Dr. Caraballo for surgical follow-up and assistance in management BPH WITH BLADDER OUTLET OBSTRUCTION - no major difficulties during the hospital stay. -Monitor urine output and monitor bladder with bladder scan -Continue current therapy with tamsulosin BENIGN POSITIONAL VERTIGO - symptoms over the past several weeks. he does have cerumen impaction on physical examination. -Attempt to remove cerumen today MAINTENANCE ISSUES -DVT prophylaxis; Lovenox 40 mg subcutaneous daily -GI prophylaxis; not indicated -Cortes catheter; not yet indicated -Nutrition; full liquids -Nicotine dependence; [id number] smoking history, denies need for nicotine patch DISPOSITION - anticipate discharge to home after the hospital stay. Mario Nassar M.D.
[2017-07-31] MEDS ORDERED: Lactated Ringers 1,000 ML IV SCH (10:45)
[2017-07-31] MEDS: Enoxaparin 40 MG/0.4 ML Syringe SUBCUT SCH (16:58)
[2017-07-31] MEDS: Tamsulosin 0.4 MG Cap.ER PO SCH (20:20)
[2017-08-01] MEDS: Ampicillin/Sulbactam Na 3 GM in Sodium Chloride 0.9% 100 ML IV SCH ×4 (03:06→21:19)
[2017-08-01] MEDS: Carbamide Peroxide 6.5% Otic Soln 15 ML Bottle EARLF SCH (08:31)
[2017-08-01] MEDS: Fluticasone Propionate Nasal Spray 16 GM Bottle NASBOTH SCH (08:31)
--- NOTE | 2017-08-01 10:07 | PCM.PN ---
- General Info Date of Service: 08/01/17 Functional Status: Reports: Pain Controlled, Tolerating Diet - Review of Systems General: Denies: Fever Gastrointestinal: Reports: Abdominal Pain Systems Review Comment:: No acute events overnight. Minimal abdominal pain at this time. No fevers or nausea. He did have diarrhea yesterday after bowel stimulation. Tolerating full liquid diet. Still feels a little dizzy but better after left ear was cleaned out yesterday. - Patient Data Vitals - Most Recent: Last Vital Signs Temp 36.3 C 08/01/17 07:00 Pulse 90 08/01/17 07:00 Resp 18 08/01/17 07:00 BP 140/81 08/01/17 07:00 Pulse Ox 94 L 08/01/17 07:00 Weight - Most Recent: 120.021 kg I&O - Last 24 Hours: Intake & Output 07/31/17 08/01/17 08/01/17 22:59 06:59 14:59 Intake Total 1680 249 400 Output Total 800 650 Balance 880 -401 400 Lab Results Last 24 Hours: Laboratory Results - last 24 hr 08/01/17 08/01/17 Range/Units 05:45 05:45 WBC 5.6 (4.5-11.0) K/uL RBC 4.13 L (4.30-5.90) M/uL Hgb 13.1 (12.0-15.0) g/dL Hct 40.0 (40.0-54.0) % MCV 97 (80-98) fL MCH 32 H (27-31) pg MCHC 33 (32-36) % Plt Count 204 (150-400) K/uL Sodium 136 L (140-148) mmol/L Potassium 3.8 (3.6-5.2) mmol/L Chloride 101 (100-108) mmol/L Carbon Dioxide 27 (21-32) mmol/L Anion Gap 11.8 (5.0-14.0) mmol/L BUN 8 (7-18) mg/dL Creatinine 1.0 (0.8-1.3) mg/dL Est Cr Clr Drug Dosing 87.25 mL/min Estimated GFR (MDRD) > 60 (>60) Glucose 108 H (74-106) mg/dL Calcium 8.6 (8.5-10.1) mg/dL Med Orders - Current: Current Medications Acetaminophen (Tylenol) 650 mg PO Q4H PRN PRN Reason: Pain (Mild 1-3)/fever Last Admin: 07/29/17 23:17 Dose: 650 mg Albuterol (Ventolin Hfa) 0 gm INH Q4H PRN PRN Reason: Shortness of Breath Carbamide Perox/Anhydrous Glycerin (Debrox 6.5% Otic Soln) 0 ml EARLF BID [facility] Last Admin: 08/01/17 08:31 Dose: 1 drop Enoxaparin Sodium (Lovenox) 40 mg SUBCUT DAILY@1700 [facility] Last Admin: 07/31/17 16:58 Dose: 40 mg Fluticasone Propionate (Flonase) 0 gm NASBOTH DAILY [facility] Last Admin: 08/01/17 08:31 Dose: 2 spray Hydromorphone HCl (Dilaudid) 0.5 mg IVPUSH Q2H PRN PRN Reason: Pain Ampicillin Sodium/Sulbactam (Sodium 3 gm/ Sodium Chloride) 100 mls @ 200 mls/ hr IV Q6H [facility] Last Admin: 08/01/17 09:49 Dose: 200 mls/hr Lactated Ringer's (Ringers, Lactated) 1,000 mls @ 25 mls/hr IV ASDIRECTED [facility] Last Admin: 07/31/17 11:13 Dose: 25 mls/hr Ondansetron HCl (Zofran) 4 mg IV Q4H PRN PRN Reason: Nausea/Vomiting Oxycodone HCl (Oxycodone) 5 mg PO Q4H PRN PRN Reason: Pain (moderate 4-6) Polyethylene Glycol (Miralax) 17 gm PO DAILY PRN PRN Reason: Constipation Last Admin: 07/31/17 09:08 Dose: 17 gm Senna/Docusate Sodium (Senna Plus) 1 tab PO BID [facility] Last Admin: 08/01/17 08:31 Dose: Not Given Sodium Chloride (Saline Flush) 10 ml FLUSH ASDIRECTED PRN PRN Reason: Keep Vein Open Last Admin: 07/31/17 13:18 Dose: 10 ml Tamsulosin HCl (Flomax) 0.4 mg PO BEDTIME [facility] Last Admin: 07/31/17 20:20 Dose: 0.4 mg Discontinued Medications Ampicillin Sodium/Sulbactam Sodium (Unasyn) Confirm Administered Dose 3 gm .ROUTE .STK-MED ONE Stop: 07/29/17 16:21 Last Admin: 07/29/17 16:37 Dose: Not Given Sodium Chloride (Normal Saline) 100 mls @ 3 mls/sec IV ASDIRECTED [facility] Last Admin: 07/29/17 14:10 Dose: 3 mls/sec Sodium Chloride (Normal Saline) 1,000 mls @ 999 mls/hr IV ASDIRECTED [facility] Levofloxacin/Dextrose 500 mg/ (Premix) 100 mls @ 100 mls/hr IV ONETIME ONE Stop: 07/29/17 16:29 Last Admin: 07/29/17 16:30 Dose: Not Given Lactated Ringer's (Ringers, Lactated) 1,000 mls @ 500 mls/hr IV ASDIRECTED [facility] Stop: 07/29/17 20:01 Last Admin: 07/29/17 16:36 Dose: 500 mls/hr Lactated Ringer's (Ringers, Lactated) 1,000 mls @ 125 mls/hr IV ASDIRECTED [facility] Last Admin: 07/30/17 02:50 Dose: 125 mls/hr Sodium Chloride (Normal Saline) Confirm Administered Dose 100 mls @ as directed .ROUTE .K-MED ONE Stop: 07/29/17 16:23 Last Admin: 07/29/17 16:51 Dose: 100 ml Lactated Ringer's (Ringers, Lactated) 1,000 mls @ 50 mls/hr IV ASDIRECTED [facility] Last Admin: 07/30/17 13:14 Dose: 50 mls/hr Iopamidol (Isovue-300 (61%)) 150 ml IV . DIRECTED [facility] Last Admin: 07/29/17 14:10 Dose: 150 ml - Exam Quality Assessment: No: Supplemental Oxygen General: Alert, Oriented, Cooperative, No Acute Distress Neck: Supple Lungs: Normal Respiratory Effort GI/Abdominal Exam: Normal Bowel Sounds, Soft, No Distention, Tender (very mild LLQ) Extremities: No Pedal Edema Psy/Mental Status: Alert, Normal Affect - Problem List Review Problem List Initiated/Reviewed/Updated: Yes - My Orders Last 24 Hours: My Active Orders 07/31/17 10:45 Lactated Ringers [Ringers, Lactated] 1,000 ml IV ASDIRECTED 07/31/17 Lunch Full Liquid Diet [DIET] 08/01/17 10:06 Head wo Cont [CT] Routine Convert IV to Saline Lock [OM.PC] Routine - Plan Plan:: ASSESSMENT AND PLAN DIVERTICULITIS WITH AN INTRAMURAL ABSCESS - pain has nearly resolved. No fevers overnight. -Saline lock IV -Continue full liquids -Unasyn 3 g IV every 6 hours, plan to continue through the night and transition to oral antibiotics tomorrow -Consult Dr. Caraballo for surgical follow-up and assistance in management, patient will need outpatient colonoscopy. BPH WITH BLADDER OUTLET OBSTRUCTION - no major difficulties during the hospital stay. -Monitor urine output and monitor bladder with bladder scan -Continue current therapy with tamsulosin BENIGN POSITIONAL VERTIGO - symptoms better but not resolved. No red flags to suggest severe pathology but plan to get imaging to rule out intracranial cause. -Head CT MAINTENANCE ISSUES -DVT prophylaxis; Lovenox 40 mg subcutaneous daily -GI prophylaxis; not indicated -Cortes catheter; not yet indicated -Nutrition; full liquids -Nicotine dependence; [id number] smoking history, denies need for nicotine patch DISPOSITION - anticipate discharge to home after the hospital stay, likely tomorrow if stable overnight. Mario Nassar M.D.
--- NOTE | 2017-08-01 10:51 | CT ---
Head wo Cont HISTORY: dizziness TECHNIQUE: Spiral noncontrast CT scan of the brain was obtained along with high-resolution bone windo w reconstructions. FINDINGS: No acute intracranial hemorrhage or infarct is identified. There is no mass lesion, mass effect, midl ine shift, or ventricular abnormality. No abnormal extra-axial fluid collections are seen. Visualized paranasal sinuses and mastoid air cells are clear. Bone windows show no evidence for skull fracture. IMPRESSION: No acute intracranial abnormality identified. Total DLP 854 mGycm
[2017-08-01] MEDS: Enoxaparin 40 MG/0.4 ML Syringe SUBCUT SCH (16:11)
[2017-08-01] MEDS: Tamsulosin 0.4 MG Cap.ER PO SCH (20:40)
[2017-08-02] MEDS: Ampicillin/Sulbactam Na 3 GM in Sodium Chloride 0.9% 100 ML IV SCH ×2 (04:40→05:25)
[2017-08-02 08:06] VITALS: BP 142/82
[2017-08-02] MEDS: Fluticasone Propionate Nasal Spray 16 GM Bottle NASBOTH SCH (08:51)
[2017-08-02] MEDS ORDERED: Amoxicillin/Clavulanate K 875-125 MG Tab PO SCH (09:30)
--- NOTE | 2017-08-02 10:56 | PCM.DCSUM1 ---
Discharge Summary - Hospital Course Brief History: 61-year-old male who presented with left lower quadrant abdominal pain and constipation. He was admitted for management of acute diverticulitis with intramural abscess. - Discharge Data Discharge Date: 08/02/17 Discharge Disposition: Home, Self-Care 01 Condition: Good - Discharge Diagnosis/Problem(s) (1) Diverticulitis large intestine SNOMED Code(s): 8074722 ICD Code: K57.32 - DVTRCLI OF LG INT W/O PERFORATION OR ABSCESS W/O BLEEDING Status: Acute Qualifiers: Diverticulitis bleeding: without bleeding Diverticulitis complication: with abscess Qualified Code(s): K57.20 - Diverticulitis of large intestine with perforation and abscess without bleeding - Patient Summary/Data Consults: Consultations 07/29/17 16:08 Consult to Physician [CONS] Routine Consulting Provider: Sincere Caraballo Call Completed to Consulting Physician: Yes Reason for Consult: Diverticulitis with intramural abscess 08/01/17 11:43 Consult to Occupational Therapy [OT Evaluation and Treatment] [CONS] Routine Please Evaluate and Treat. OT Reason for Consult: Other (Type Response) Special Instructions: vestibular rehab This query below is only for informational purposes and is not editable. Admission Diagnosis/Problem: Diverticulitis Hospital Course: Jose presented to the emergency room with left lower quadrant abdominal pain, constipation and fever. Workup in the emergency room included a CT scan which revealed evidence for acute sigmoid diverticulitis as well as a 2.5 cm abscess in the lumen of his colon. He was admitted to the hospital and started on Unasyn. He was provided pain medication as well as IV fluids. Over the course of the next couple of days he had slow but steady improvement in his pain. He had some low-grade temperature elevations but no true fevers during the course of the hospital stay. As the hospital stay progressed his pain has essentially resolved. We were able to transition him to full liquids for his diet. He has tolerated this well without any increase in his pain. He has not had any fevers. I did keep him in the hospital for an extra day or 2 just to receive extra IV antibiotics with the intramural abscess noted. With resolution of his pain and no fevers I think he is safe for a trial of oral medications and outpatient management. There is a chance that this abscess may not resolve just with oral antibiotic therapy but is in a difficult location to treat surgically or with interventional radiology. Hopefully antibiotic therapy will provide adequate management and surgery will be necessary. He did prescribe a slightly longer course of antibiotics given the presence of the abscess. He will maintain a soft bland diet over the course of the next week or so before returning to his usual diet. - Patient Instructions Diet: Regular Diet as Tolerated Diet, Other: soft and bland foods for the next few days Activity: As Tolerated Showering/Bathing: May Shower Notify Provider of: Fever, Increased Pain, Nausea and/or Vomiting Other/Special Instructions: 1. You were in the hospital for management of acute diverticulitis that was complicated by an abscess in the wall of your intestine. Your condition has been improving with antibiotic therapy. I recommend 9.5 additional days of antibiotic therapy with Augmentin. He should take this antibiotic twice daily with food to avoid stomach upset. Your next dose is due tonight. Because you have an abscess in the wall of your intestine you are at a higher risk of having difficulty clearing the infection. You should seek medical attention with worsening of your abdominal pain, fever greater than 101, persistent vomiting or severe diarrhea especially if there is bleeding. - Discharge Plan Prescriptions/Med Rec: Amoxicillin/Clavulanate K [Augmentin 875-125 MG] 1 tab PO BID #19 tablet Home Medications: Home Meds Albuterol [Ventolin HFA] 2 puff INH Q4H PRN 11/22/16 [History] Tamsulosin [Flomax] 0.4 mg PO BEDTIME #90 cap.er 11/23/16 [Rx] Amoxicillin/Clavulanate K [Augmentin 875-125 MG] 1 tab PO BID #19 tablet [Rx] Patient Handouts: Amoxicillin; Clavulanic Acid tablets, Diverticulitis, Easy-to -Read, Low-Fiber Diet, [place] Diet Referrals: Mat Sahu NP [Primary Care Provider] - (follow-up of symptoms get worse or do not continue to get better) - Discharge Summary/Plan Comment DC Time >30 min.: No (25) - Patient Data Vitals - Most Recent: Last Vital Signs Temp 36.2 C 08/02/17 08:00 Pulse 87 08/02/17 08:00 Resp 16 08/02/17 08:00 BP 142/82 H 08/02/17 08:00 Pulse Ox 95 08/02/17 08:00 Weight - Most Recent: 119.023 kg I&O - Last 24 hours: Intake & Output 08/01/17 08/02/17 08/02/17 22:59 06:59 14:59 Intake Total 880 240 Output Total 900 925 Balance -20 -452 Med Orders - Current: Current Medications Acetaminophen (Tylenol) 650 mg PO Q4H PRN PRN Reason: Pain (Mild 1-3)/fever Last Admin: 07/29/17 23:17 Dose: 650 mg Albuterol (Ventolin Hfa) 0 gm INH Q4H PRN PRN Reason: Shortness of Breath Amoxicillin/Clavulanate Potassium (Augmentin 875 Mg/125 Mg) 1 tab PO BID [facility] Last Admin: 08/02/17 09:45 Dose: 1 tab Enoxaparin Sodium (Lovenox) 40 mg SUBCUT DAILY@1700 [facility] Last Admin: 08/01/17 16:11 Dose: 40 mg Fluticasone Propionate (Flonase) 0 gm NASBOTH DAILY [facility] Last Admin: 08/02/17 08:51 Dose: 2 spray Ondansetron HCl (Zofran) 4 mg IV Q4H PRN PRN Reason: Nausea/Vomiting Oxycodone HCl (Oxycodone) 5 mg PO Q4H PRN PRN Reason: Pain (moderate 4-6) Polyethylene Glycol (Miralax) 17 gm PO DAILY PRN PRN Reason: Constipation Last Admin: 07/31/17 09:08 Dose: 17 gm Senna/Docusate Sodium (Senna Plus) 1 tab PO BID [facility] Last Admin: 08/02/17 08:51 Dose: 1 tab Sodium Chloride (Saline Flush) 10 ml FLUSH ASDIRECTED PRN PRN Reason: Keep Vein Open Last Admin: 07/31/17 13:18 Dose: 10 ml Tamsulosin HCl (Flomax) 0.4 mg PO BEDTIME [facility] Last Admin: 08/01/17 20:40 Dose: 0.4 mg Discontinued Medications Ampicillin Sodium/Sulbactam Sodium (Unasyn) Confirm Administered Dose 3 gm .ROUTE .STK-MED ONE Stop: 07/29/17 16:21 Last Admin: 07/29/17 16:37 Dose: Not Given Carbamide Perox/Anhydrous Glycerin (Debrox 6.5% Otic Soln) 0 ml EARLF BID [facility] Last Admin: 08/01/17 08:31 Dose: 1 drop Hydromorphone HCl (Dilaudid) 0.5 mg IVPUSH Q2H PRN PRN Reason: Pain Sodium Chloride (Normal Saline) 100 mls @ 3 mls/sec IV ASDIRECTED [facility] Last Admin: 07/29/17 14:10 Dose: 3 mls/sec Sodium Chloride (Normal Saline) 1,000 mls @ 999 mls/hr IV ASDIRECTED [facility] Levofloxacin/Dextrose 500 mg/ (Premix) 100 mls @ 100 mls/hr IV ONETIME ONE Stop: 07/29/17 16:29 Last Admin: 07/29/17 16:30 Dose: Not Given Ampicillin Sodium/Sulbactam (Sodium 3 gm/ Sodium Chloride) 100 mls @ 200 mls/ hr IV Q6H [facility] Last Admin: 08/02/17 05:25 Dose: Not Given Lactated Ringer's (Ringers, Lactated) 1,000 mls @ 500 mls/hr IV ASDIRECTED [facility] Stop: 07/29/17 20:01 Last Admin: 07/29/17 16:36 Dose: 500 mls/hr Lactated Ringer's (Ringers, Lactated) 1,000 mls @ 125 mls/hr IV ASDIRECTED [facility] Last Admin: 07/30/17 02:50 Dose: 125 mls/hr Sodium Chloride (Normal Saline) Confirm Administered Dose 100 mls @ as directed .ROUTE .STK-MED ONE Stop: 07/29/17 16:23 Last Admin: 07/29/17 16:51 Dose: 100 ml Lactated Ringer's (Ringers, Lactated) 1,000 mls @ 50 mls/hr IV ASDIRECTED [facility] Last Admin: 07/30/17 13:14 Dose: 50 mls/hr Lactated Ringer's (Ringers, Lactated) 1,000 mls @ 25 mls/hr IV ASDIRECTED [facility] Last Admin: 07/31/17 11:13 Dose: 25 mls/hr Iopamidol (Isovue-300 (61%)) 150 ml IV . DIRECTED [facility] Last Admin: 07/29/17 14:10 Dose: 150 ml - Exam Quality Assessment: Denies: Supplemental Oxygen General: Reports: Alert, Oriented, Cooperative, No Acute Distress Neck: Reports: Supple Lungs: Reports: Normal Respiratory Effort GI/Abdominal Exam: Soft, No Distention Psy/Mental Status: Reports: Alert, Normal Affect *Q Meaningful Use (DIS) - VTE *Q VTE Criteria *Q: - Stroke *Q Stroke Criteria *Q: - AMI *Q AMI Criteria *Q:
== END 2017-08-02 11:22 | disposition home or self-care (01) | DRG 392 ==
LOC: JP.ED 11:24 → JP.MS 15:52
PROVIDERS: ADMIT Hospitalist; ATTEND Hospitalist
DX: K57.20 Diverticulitis of large intestine with perforation and abscess without bleeding (principal); K59.00 Constipation, unspecified; J44.9 Chronic obstructive pulmonary disease, unspecified; F17.200 Nicotine dependence, unspecified, uncomplicated; Z88.8 Allergy status to other drugs, medicaments and biological substances; Z79.899 Other long term (current) drug therapy
CPT/HCPCS: 36415; 51798; 70450; 70450-26; 71046; 74177; 80048; 80053; 81001; 85025; 85027; 86140; 97165-GO; 97530-GO; 99285-25; A9270-GY; J0295; J1650; J7030; J7050; J7120

== ENCOUNTER 2017-10-15 19:04 | Emergency (ER) | payer MEDICAID ==
[2017-10-15] MEDS ORDERED: Lactated Ringers 1,000 ML IV SCH (20:15)
--- NOTE | 2017-10-15 20:46 | EDM.PDOC ---
ED HPI GENERAL MEDICAL PROBLEM - General Chief Complaint: Neuro Symptoms/Deficits Stated Complaint: VERTIGO Time Seen by Provider: 10/15/17 19:35 Source of Information: Reports: Patient History Limitations: Reports: No Limitations - History of Present Illness INITIAL COMMENTS - FREE TEXT/NARRATIVE: Fall: This is a 62-year-old male presents emergency room by private vehicle, reports one half weeks ago he became dizzy then fell witnessed by his who reports he was unconscious for at least 1 minute. Since that time he has had right shoulder pain and just not feeling well. Reports vision changes unable to focus at times. He reports he had ahead CT in July which was negative for any acute pathology. Reports hospitalized 08/01/2017 for complications of diverticulitis. Nonsurgical. Pain control antibiotic therapy was initiated. bladder infection for the past one half months, urine is now milky and odorous. And has low pelvic pain. Also reports dysuria, frequency, urgency and pelvic pain. Denies fever or chills. Onset: Gradual Duration: Week(s): (Fell 1-1/2 weeks ago at his home.), Getting Worse Location: Reports: Generalized Quality: Reports: Other (reports UTI, right upper arm pain, and vertigo.) Severity: Moderate Improves with: Reports: Rest Worsens with: Reports: Movement Context: Reports: Other (Fall at his home) Associated Symptoms: Reports: Other (Right upper arm pain) Treatments FINISHING TRIMMER: Reports: Acetaminophen Right Shoulder Pain Score (Numeric/FACES): 5 - Related Data Allergies Allergy/AdvReac Type Severity Reaction Status Date / Time Egg Derived Allergy Cannot Verified 10/15/17 19:22 Remember hylan G-F 20 [From Synvisc] Allergy Cannot Verified 10/15/17 19:22 Remember tramadol Allergy Cannot Verified 10/15/17 19:22 Remember celecoxib [From Celebrex] AdvReac Nausea Verified 10/15/17 19:22 Home Meds: Home Meds Albuterol [Ventolin HFA] 2 puff INH Q4H PRN 11/22/16 [History] Tamsulosin [Flomax] 0.4 mg PO DAILY 10/15/17 [History] Past Medical History HEENT History: Reports: Impaired Vision Other HEENT History: reading glasses Respiratory History: Reports: COPD Gastrointestinal History: Reports: Diverticulosis Musculoskeletal History: Reports: Fracture, Other (See Below) Other Musculoskeletal History: low back pain. L hip pain Psychiatric History: Reports: Depression Endocrine/Metabolic History: Reports: Obesity/BMI 30+ - Infectious Disease History Infectious Disease History: Reports: Chicken Pox, Measles - Past Surgical History GI Surgical History: Reports: Colonoscopy Other Male Surgeries/Procedures: DIFFICULTY WITH URINATING Musculoskeletal Surgical History: Reports: Knee Replacement, Other (See Below) Other Musculoskeletal Surgeries/Procedures:: R TKA 2016 Social & Family History - Family History HEENT: Reports: Impaired Vision Cardiac: Reports: Bypass, Heart Failure, [place] Respiratory: Reports: COPD OBGYN: Reports: Recurrent Spontaneous Musculoskeletal: Reports: Back pain, Chronic Neurological: Reports: Dementia Psychiatric: Reports: Bipolar - Tobacco Use Smoking Status *Q: Unknown Ever Smoked Years of Tobacco use: 30 Packs/Tins Daily: 1 Used Tobacco, but Quit: No Second Hand Smoke Exposure: Yes - Caffeine Use Caffeine Use: Reports: Coffee, Soda Other Caffeine Use: 4-5 CUPS COFFEE /DAY - Recreational Drug Use Recreational Drug Use: No - Living Situation & Occupation Living situation: Reports: (Lives with his who is a chronic alcoholic. Has a 30-year-old son who has issues with chemical dependency.) ED ROS GENERAL - Review of Systems Review Of Systems: See Below Constitutional: Reports: Fatigue HEENT: Reports: Vertigo, Vision Change Respiratory: Reports: No Symptoms Cardiovascular: Reports: No Symptoms Endocrine: Reports: No Symptoms GI/Abdominal: Reports: Abdominal Pain (Low pelvic pressure with voiding.) : Reports: Dysuria, Frequency, Pain, Urgency, Urinary Retention Musculoskeletal: Reports: Arm Pain (Right upper arm), Muscle Pain (Right upper arm with pain) Skin: Reports: No Symptoms Neurological: Reports: Syncope, Other (Fall at home one and half weeks ago) Psychiatric: Reports: No Symptoms Hematologic/Lymphatic: Reports: No Symptoms Immunologic: Reports: No Symptoms ED EXAM, GENERAL - Physical Exam Exam: See Below Exam Limited By: No Limitations General Appearance: Alert, WD/WN, No Apparent Distress, Other (Pleasant talkative neat and well-groomed male.) Eye Exam: Left Eye: Abnormal EOM (nystagmus), Nystagmus, Bilateral Eye: PERRL Ears: Normal External Exam, Normal Canal, Hearing Grossly Normal, Normal TMs Ear Exam: Bilateral Ear: Auricle Normal, Canal Normal, TM normal Throat/Mouth: Normal Lips, Normal Voice, No Airway Compromise, Inflammation, Other (Teeth noted with severe decay and multiple missing teeth) Head: Atraumatic, Normocephalic Neck: Normal Inspection, Supple, Non-Tender, Full Range of Motion Respiratory/Chest: No Respiratory Distress, Lungs Clear, Normal Breath Sounds, No Accessory Muscle Use, Chest Non-Tender Cardiovascular: Normal Peripheral Pulses, Regular Rate, Rhythm, No Edema, No Gallop, No JVD, No Murmur, No Rub GI/Abdominal: Normal Bowel Sounds, Soft, Tender (Low pelvis) (Male) Exam: Deferred Rectal (Males) Exam: Deferred Back Exam: Normal Inspection, Full Range of Motion Extremities: Arm Pain (Right upper arm), Other (With pain upon palpation of the proximal humerus, resolving bruising is noted. Clavicle is non-tender.) Neurological: Alert, Oriented, Normal Cognition Psychiatric: Normal Affect, Normal Mood Skin Exam: Warm, Dry, Intact Lymphatic: No Adenopathy Course - Vital Signs Last Recorded V/S: Last Vital Signs Temp 36.7 C 10/15/17 23:21 Pulse 99 10/15/17 23:21 Resp 14 10/15/17 23:21 BP 128/68 10/15/17 23:21 Pulse Ox 96 10/15/17 23:21 - Orders/Labs/Meds Orders: Active Orders 24 hr Category Date Time Status Head wo Cont [CT] Stat Exams 10/15/17 20:11 Taken Humerus Rt [CR] Stat Exams 10/15/17 20:46 Taken UA W/MICROSCOPIC [URIN] Urgent Lab 10/15/17 20:35 Ordered Labs: Laboratory Tests 10/15/17 10/15/17 10/15/17 Range/Units 20:32 20:32 20:35 WBC 5.3 (4.5-11.0) K/uL RBC 4.35 (4.30-5.90) M/uL Hgb 14.0 (12.0-15.0) g/dL Hct 42.0 (40.0-54.0) % MCV 97 (80-98) fL MCH 32 H (27-31) pg MCHC 33 (32-36) % Plt Count 219 (150-400) K/uL Neut % (Auto) 61 (36-66) % Lymph % (Auto) 24 (24-44) % [place] % (Auto) 13 H (2-6) % Eos % (Auto) 1 L (2-4) % Baso % (Auto) 0 (0-1) % Sodium 140 (140-148) mmol/L Potassium 4.1 (3.6-5.2) mmol/L Chloride 103 (100-108) mmol/L Carbon Dioxide 29 (21-32) mmol/L Anion Gap 7.7 (5.0-14.0) mmol/L BUN 14 D (7-18) mg/dL Creatinine 1.3 (0.8-1.3) mg/dL Est Cr Clr Drug Dosing 68.50 mL/min Estimated GFR (MDRD) 56 L (>60) Glucose 145 H (74-106) mg/dL Calcium 8.3 L (8.5-10.1) mg/dL Total Bilirubin 0.3 D (0.2-1.0) mg/dL AST 16 (15-37) U/L ALT 20 (12-78) U/L Alkaline Phosphatase 108 (46-116) U/L Total Protein 7.1 (6.4-8.2) g/dL Albumin 3.1 L (3.4-5.0) g/dL Globulin 4.0 H (2.3-3.5) g/dL Albumin/Globulin Ratio 0.8 L (1.2-2.2) Urine Color Yellow Urine Appearance Turbid Urine pH 5.0 (4.5-8.0) Ur Specific [place] 1.015 (1.008-1.030) Urine Protein Negative (NEGATIVE) mg/dL Urine Glucose (UA) Normal (NEGATIVE) mg/dL Urine Ketones Negative (NEGATIVE) mg/dL Urine Occult Blood Large (NEGATIVE) Urine Nitrite Positive H (NEGAITVE) Urine Bilirubin Negative (NEGATIVE) Urine Urobilinogen Normal (NORMAL) mg/dL Ur Leukocyte Esterase Large (NEGATIVE) Urine RBC 0-5 (0-5) Urine WBC Packed H (0-5) Ur Epithelial Cells Rare Amorphous Sediment Not seen Urine Bacteria Many Urine Mucus Not seen Meds: Medications Discontinued Medications Generic Name Dose Route Start Last Admin Trade Name Freq PRN Reason Stop Dose Admin Lactated Ringer's 1,000 mls @ 999 mls/hr 10/15/17 20:15 10/15/17 20:50 Ringers, Lactated IV 999 mls/hr ASDIRECTED LUCERO Administration Levofloxacin/Dextrose 750 mg/ 150 mls @ 100 mls/hr 10/15/17 21:00 10/15/17 21 :40 Premix IV 100 mls/hr Q24H LUCERO Administration - Re-Assessments/Exams Free Text/Narrative Re-Assessment/Exam: 10/15/17 20:55 labs: CBC CMP and urine with microscopic Imaging: head CT to rule out syncope event and left eye nystagmus Meds: Lactated Ringer's at 999 ml/per hour Will await results. Mr. Morris agrees with plan of care. 10/15/17 21:06 Lab reports CBC white count 5.3, hemoglobin 14, hematocrit 42, platelets 219, CMP no acute results, urine yellow turbulent, large blood, nitrate positive, leukocyte large, WBCs packed. Discussed with patient will start Levaquin 750 mg IV 1, will await results of CT of head, and x-ray of the right upper arm. 10/15/17 21:[address] noncontrast report brain no evidence of mass, acute infarction or hemorrhage is seen. No mass effect or midline shift is seen. Brain parenchyma is otherwise normal in appearance with preservation of the russell-white matter junction. Calvarium; para nasal sinuses are well aerated. Mastoid air cells are clear. The visual orbits are grossly unremarkable. The cavernous is unremarkable in appearance with no fractures identified. Impression; no evidence of acute infarction, hemorrhage or mass effect is seen. Reviewed with patient. 10/15/17 22:27 X-ray of the right humerus does not show any acute fracture or bony injury. Reviewed all the reports labs with patient currently getting Levaquin 750 mg IV, will plan to discharge to home, advised to follow-up with primary care for recheck in 3-5 days, return to ER sooner if has any fever chills or worsening symptoms. Mr. Morris agrees with plan of care and verbalizes understanding. Departure - Departure Time of Disposition: 23:23 Disposition: Home, Self-Care 01 Condition: Good (Thank you) Clinical Impression: Urinary tract infection Qualifiers: Urinary tract infection type: acute cystitis Hematuria presence: with hematuria Qualified Code(s): N30.01 - Acute cystitis with hematuria Fall at home Qualifiers: Encounter type: initial encounter Qualified Code(s): W19.XXXA - Unspecified fall, initial encounter - Discharge Information Instructions: Urinary Tract Infection, Adult, [id number] Referrals: Mat Sahu PLASTER PATTERNMAKER [Primary Care Provider] - Forms: ED Department Discharge Care Plan Goals: Urinary tract infection -Start Levaquin 500 mg one by mouth daily in morning take for the next 10 days. -Push fluids, rest, take medication as directed -Follow-up with primary care in the next 3-5 days -Return to ER if not improved or symptoms worsen - Problem List & Annotations (1) Urinary tract infection SNOMED Code(s): 52262725 Code(s): N39.0 - URINARY TRACT INFECTION, SITE NOT SPECIFIED Status: Acute Priority: High Qualifiers: Urinary tract infection type: acute cystitis Hematuria presence: with hematuria Qualified Code(s): N30.01 - Acute cystitis with hematuria (2) Fall at home SNOMED Code(s): 55029099 Code(s): W19.XXXA - UNSPECIFIED FALL, INITIAL ENCOUNTER; Y92.009 - UNSP PLACE IN UNSP NON-INSTITUT (PRIVATE) RESIDENCE PLACE Status: Acute Priority: Medium Qualifiers: Encounter type: initial encounter Qualified Code(s): W19.XXXA - Unspecified fall, initial encounter; Y92.009 - Unspecified place in unspecified non-institutional (private) residence as the place of occurrence of the external cause - Problem List Review Problem List Initiated/Reviewed/Updated: Yes - My Orders Last 24 Hours: My Active Orders 10/15/17 20:11 Head wo Cont [CT] Stat 10/15/17 20:35 UA W/MICROSCOPIC [URIN] Urgent 10/15/17 20:46 Humerus Rt [CR] Stat - Assessment/Plan Last 24 Hours: My Active Orders 10/15/17 20:11 Head wo Cont [CT] Stat 10/15/17 20:35 UA W/MICROSCOPIC [URIN] Urgent 10/15/17 20:46 Humerus Rt [CR] Stat Plan: Urinary tract infection -Start Levaquin 500 mg one by mouth daily in morning take for the next 10 days. -Push fluids, rest, take medication as directed -Follow-up with primary care in the next 3-5 days -Return to ER if not improved or symptoms worsen Fall at home last week -Negative head CT -Follow-up with primary care for recheck in 3-5 days -Return to emergency room if has any symptoms or concerns
[2017-10-15] MEDS ORDERED: Levofloxacin/Dextrose 5%-Water 750 MG in Premix Bag 1 BAG IV SCH (21:00)
[2017-10-15 23:21] VITALS: BP 128/68
--- NOTE | 2017-10-16 08:59 | CR ---
Humerus Rt CLINICAL HISTORY: Fall, pain FINDINGS: There is no acute fracture within the humerus. There is some osteoarthritic change at the g lenohumeral joint AC joint and elbow. IMPRESSION: No fracture seen Osteoarthritic changes
== END 2017-10-15 23:23 | disposition home or self-care (01) ==
LOC: JP.ED 19:04
DX: N30.01 Acute cystitis with hematuria (principal); Z79.899 Other long term (current) drug therapy; Z77.22 Contact with and (suspected) exposure to environmental tobacco smoke (acute) (chronic); Z91.012 Allergy to eggs; Z88.1 Allergy status to other antibiotic agents; Z88.5 Allergy status to narcotic agent; W19.XXXA Unspecified fall, initial encounter; Y92.009 Unspecified place in unspecified non-institutional (private) residence as the place of occurrence of the external cause
CPT/HCPCS: 36415; 70450; 73060; 80053; 81001; 85025; 96361; 96365; 99285; J1956; J7120

== ENCOUNTER 2018-01-03 17:24 | Emergency (ER) | payer MEDICAID ==
[2018-01-03 17:41] VITALS: BP 117/70
--- NOTE | 2018-01-03 18:15 | EDM.PDOC ---
ED HPI GENERAL MEDICAL PROBLEM - General Chief Complaint: Respiratory Problem Time Seen by Provider: 01/03/18 18:00 Source of Information: Reports: Patient, Family History Limitations: Reports: No Limitations - History of Present Illness INITIAL COMMENTS - FREE TEXT/NARRATIVE: 62-year-old male with COPD, continues to smoke, has developed increasing shortness of breath and wheezing over the past several days. It seemed to start after he was working in the yard mowing as was exposed to some old trees that they had cut. His inhalers are still helping briefly but is having trouble with activity. No fevers or chills, nonproductive cough. Also blowing his nose a lot , but denies sore throat. Onset: Gradual (Over the past 3 days) Severity: Moderate Improves with: Reports: Medication (Inhalers) Worsens with: Reports: Other (Activity) Associated Symptoms: Reports: Cough, Shortness of Breath. Denies: Chest Pain, Fever/Chills - Related Data Allergies Allergy/AdvReac Type Severity Reaction Status Date / Time Egg Derived Allergy Cannot Verified 01/03/18 17:38 Remember hylan G-F 20 [From Synvisc] Allergy Cannot Verified 01/03/18 17:38 Remember tramadol Allergy Cannot Verified 01/03/18 17:38 Remember celecoxib [From Celebrex] AdvReac Nausea Verified 01/03/18 17:38 Home Meds: Home Meds Albuterol [Ventolin HFA] 2 puff INH Q4H PRN 11/22/16 [History] Tamsulosin [Flomax] 0.4 mg PO DAILY 10/15/17 [History] Formoterol/Mometasone [Dulera 100 MCG/5 MCG] 2 puff IN BID 01/03/18 [History] Past Medical History HEENT History: Reports: Impaired Vision Other HEENT History: reading glasses Respiratory History: Reports: COPD Gastrointestinal History: Reports: Diverticulosis Musculoskeletal History: Reports: Back Pain, Chronic, Fracture, Other (See Below ) Other Musculoskeletal History: low back pain. L hip pain Psychiatric History: Reports: Anxiety, Depression, Panic Attack Endocrine/Metabolic History: Reports: Obesity/BMI 30+ - Infectious Disease History Infectious Disease History: Reports: Chicken Pox, Measles, Mumps, Shingles - Past Surgical History GI Surgical History: Reports: Colonoscopy Other Male Surgeries/Procedures: DIFFICULTY WITH URINATING Musculoskeletal Surgical History: Reports: Knee Replacement, Other (See Below) Other Musculoskeletal Surgeries/Procedures:: R TKA 2016 Social & Family History - Family History HEENT: Reports: Impaired Vision Cardiac: Reports: Bypass, Heart Failure, [place] Respiratory: Reports: COPD OBGYN: Reports: Recurrent Spontaneous Musculoskeletal: Reports: Back pain, Chronic Neurological: Reports: Dementia Psychiatric: Reports: Bipolar - Tobacco Use Smoking Status *Q: Current Every Day Smoker Years of Tobacco use: 30 Packs/Tins Daily: 1.5 - Caffeine Use Caffeine Use: Reports: Coffee Other Caffeine Use: 4-5 CUPS COFFEE /DAY - Recreational Drug Use Recreational Drug Use: No - Living Situation & Occupation Living situation: Reports: (Lives with his who is a chronic alcoholic. Has a 30-year-old son who has issues with chemical dependency.) ED ROS GENERAL - Review of Systems Review Of Systems: See Below Constitutional: Denies: Fever, Chills HEENT: Reports: Rhinitis Respiratory: Reports: Shortness of Breath, Wheezing, Cough. Denies: Sputum Cardiovascular: Denies: Chest Pain GI/Abdominal: Denies: Abdominal Pain, Nausea, Vomiting Skin: Reports: No Symptoms Neurological: Reports: Paresthesia (Mentioned some intermittent paresthesias of the right arm which been chronic since a fall) ED EXAM, GENERAL - Physical Exam Exam: See Below Exam Limited By: No Limitations General Appearance: Alert, No Apparent Distress Head: Atraumatic Neck: Supple Respiratory/Chest: No Respiratory Distress, Wheezing (Diffuse inspiratory and expiratory wheezing, especially expiratory. No basilar rales, crackles or decreased breath sounds) Cardiovascular: Regular Rate, Rhythm Extremities: No: Pedal Edema (No significant lower extremity edema) Neurological: Alert, Oriented Psychiatric: Normal Affect, Normal Mood Skin Exam: Warm, Dry Course - Vital Signs Last Recorded V/S: Last Vital Signs Temp 96.9 F 01/03/18 17:42 Pulse 101 H 01/03/18 17:42 Resp 22 H 01/03/18 17:42 BP 117/70 01/03/18 17:42 Pulse Ox 92 L 01/03/18 17:42 - Re-Assessments/Exams Free Text/Narrative Re-Assessment/Exam: 01/03/18 18:13 Patient has an exacerbation of COPD likely brought on by environmental factors as well as humidity. He also may have an overlying viral cold. Because of his chronic pulmonary condition, and continued cigarette use he'll be covered with Zithromax but also placed on prednisone 60 mg daily for 5 consecutive days. He was encouraged to continue with his inhalers as needed, and return anytime if worsening despite treatment. He should also consider rechecking in 2-3 days if not improving. Departure - Departure Time of Disposition: 18:20 Disposition: Home, Self-Care 01 Condition: Good Clinical Impression: Acute exacerbation of chronic obstructive pulmonary disease (COPD) - Discharge Information Instructions: Chronic Obstructive Pulmonary Disease, [id number] Referrals: Mat Sahu NP [Primary Care Provider] - Forms: ED Department Discharge Care Plan Goals: Take 6 pills of prednisone with food once daily, with your first food of the day. Take 5 consecutive days, take antibiotic as directed and continue with your inhalers as needed. Return anytime if worsening despite treatment, or consider rechecking in 2-3 days if not improving satisfactorily.
== END 2018-01-03 18:21 | disposition home or self-care (01) ==
LOC: JP.ED 17:24
DX: J44.1 Chronic obstructive pulmonary disease with (acute) exacerbation (principal); F17.210 Nicotine dependence, cigarettes, uncomplicated; J44.9 Chronic obstructive pulmonary disease, unspecified; Z79.899 Other long term (current) drug therapy; Z91.012 Allergy to eggs; Z88.5 Allergy status to narcotic agent; Z88.8 Allergy status to other drugs, medicaments and biological substances; Z88.1 Allergy status to other antibiotic agents
CPT/HCPCS: 99283

== ENCOUNTER 2019-03-13 22:48 | Emergency (ER) | payer MEDICAID ==
[2019-03-13 23:02] VITALS: BP 140/79; PULSE 69
[2019-03-13] MEDS ORDERED: Ondansetron 4 MG/2 ML SDV IVPUSH ONE (23:08)
--- NOTE | 2019-03-13 23:09 | EDM.PDOC ---
ED HPI GENERAL MEDICAL PROBLEM - General Chief Complaint: Behavioral/Psych Stated Complaint: EVAL Time Seen by Provider: 03/13/19 23:09 Source of Information: Reports: Patient History Limitations: Reports: No Limitations - History of Present Illness INITIAL COMMENTS - FREE TEXT/NARRATIVE: pt arrived with a history of taking about 30 tablets of 40 mg celexa. He did get sick about 45 minutes after he took the pills and he did vomit 5 times. He didn, see the pills in the emesis. Onset: Today Duration: Hour(s): Location: Reports: Head, Generalized Associated Symptoms: Reports: Other (pt is lethargic. ) - Related Data Allergies Allergy/AdvReac Type Severity Reaction Status Date / Time Egg Derived Allergy Cannot Verified 06/02/18 14:28 Remember hylan G-F 20 [From Synvisc] Allergy Cannot Verified 06/02/18 14:28 Remember tramadol Allergy Cannot Verified 06/02/18 14:28 Remember celecoxib [From Celebrex] AdvReac Nausea Verified 06/02/18 14:28 Home Meds: Home Meds Albuterol [Ventolin HFA] 2 puff INH Q4H PRN 11/22/16 [History] Tamsulosin [Flomax] 0.4 mg PO DAILY 10/15/17 [History] Citalopram [Citalopram HBr] 40 mg PO DAILY 03/13/19 [History] Mirtazapine 15 mg PO BEDTIME 03/13/19 [History] Past Medical History HEENT History: Reports: Impaired Vision Other HEENT History: reading glasses Respiratory History: Reports: COPD Gastrointestinal History: Reports: Diverticulosis Genitourinary History: Reports: None Musculoskeletal History: Reports: Back Pain, Chronic, Fracture, Other (See Below ) Other Musculoskeletal History: low back pain. L hip pain Neurological History: Reports: Other (See Below) Other Neuro History: dizzy after coughing Psychiatric History: Reports: Anxiety, Depression, Panic Attack Endocrine/Metabolic History: Reports: Obesity/BMI 30+ - Infectious Disease History Infectious Disease History: Reports: Chicken Pox, Measles, Mumps, Scarlet Fever , Shingles - Past Surgical History Head Surgeries/Procedures: Reports: None HEENT Surgical History: Reports: None Respiratory Surgical History: Reports: None GI Surgical History: Reports: Colonoscopy Other Male Surgeries/Procedures: DIFFICULTY WITH URINATING Endocrine Surgical History: Reports: None Musculoskeletal Surgical History: Reports: Knee Replacement, Other (See Below) Other Musculoskeletal Surgeries/Procedures:: R TKA 2016 Dermatological Surgical History: Reports: None Social & Family History - Family History HEENT: Reports: Impaired Vision Cardiac: Reports: Bypass, Heart Failure, CT Respiratory: Reports: COPD OBGYN: Reports: Recurrent Spontaneous Musculoskeletal: Reports: Back pain, Chronic Neurological: Reports: Dementia Psychiatric: Reports: Bipolar - Caffeine Use Caffeine Use: Reports: Coffee Other Caffeine Use: 4-5 CUPS COFFEE /DAY - Living Situation & Occupation Living situation: Reports: (Lives with his who is a chronic alcoholic. Has a 30-year-old son who has issues with chemical dependency.) ED ROS GENERAL - Review of Systems Review Of Systems: See Below Constitutional: Reports: No Symptoms HEENT: Reports: No Symptoms Respiratory: Reports: No Symptoms Cardiovascular: Reports: No Symptoms, Other ( ekg appeared ok. No sign of tachy. ) Endocrine: Reports: No Symptoms GI/Abdominal: Reports: No Symptoms : Reports: No Symptoms Musculoskeletal: Reports: No Symptoms Skin: Reports: No Symptoms Neurological: Reports: No Symptoms, Other (pt is mildly sedated but otherwise is able to maintain airway and his answering questions normally. ) Psychiatric: Reports: Depression, Suicidal Ideation, Other (pt lost his in september he is not dealing well with that. ) Hematologic/Lymphatic: Reports: No Symptoms ED EXAM, NEURO - Physical Exam Exam: See Below Text/Narrative:: pt arrived after taking 30 celexa. He has vomited about 5 times just after taking the pills. Exam Limited By: No Limitations General Appearance: Alert, Anxious, Other (pt is sleepypupils are equal and reactive. x) Ears: Normal TMs Nose: Normal Inspection Throat/Mouth: Normal Inspection Head Exam: Atraumatic Neck: Normal Inspection Respiratory/Chest: No Respiratory Distress Cardiovascular: Regular Rate, Rhythm GI/Abdominal: Soft, Non-Tender (Male) Exam: Deferred Rectal (Males) Exam: Deferred Neurological: Alert, Other (pt does fall asleep easily. ) Back Exam: Normal Inspection Extremities: Normal Inspection Psychiatric: Normal Affect Skin Exam: Warm Course - Vital Signs Last Recorded V/S: Last Vital Signs Temp 35.6 C 03/13/19 23:10 Pulse 69 03/13/19 23:10 Resp 16 03/13/19 23:10 BP 140/79 03/13/19 23:10 Pulse Ox 96 03/13/19 23:10 - Orders/Labs/Meds Labs: Laboratory Tests 03/13/19 03/13/19 03/13/19 Range/Units 23:14 23:14 23:30 WBC 13.1 H (4.5-11.0) K/uL RBC 4.80 (4.30-5.90) M/uL Hgb 15.2 H (12.0-15.0) g/dL Hct 46.7 (40.0-54.0) % MCV 97 (80-98) fL MCH 32 H (27-31) pg MCHC 33 (32-36) % Plt Count 193 (150-400) K/uL Neut % (Auto) 87 H (36-66) % Lymph % (Auto) 8 L (24-44) % [place] % (Auto) 5 (2-6) % Eos % (Auto) 0 L (2-4) % Baso % (Auto) 0 (0-1) % Sodium 137 L (140-148) mmol/L Potassium 4.2 (3.6-5.2) mmol/L Chloride 102 (100-108) mmol/L Carbon Dioxide 26 (21-32) mmol/L Anion Gap 13.2 (5.0-14.0) mmol/L BUN 15 (7-18) mg/dL Creatinine 1.1 (0.8-1.3) mg/dL Est Cr Clr Drug Dosing 77.68 mL/min Estimated GFR (MDRD) > 60 (>60) Glucose 164 H (74-106) mg/dL Calcium 8.8 (8.5-10.1) mg/dL Total Bilirubin 0.3 (0.2-1.0) mg/dL AST 25 (15-37) U/L ALT 22 (12-78) U/L Alkaline Phosphatase 102 (46-116) U/L Total Protein 7.5 (6.4-8.2) g/dL Albumin 3.6 (3.4-5.0) g/dL Globulin 3.9 H (2.3-3.5) g/dL Albumin/Globulin Ratio 0.9 L (1.2-2.2) Urine Color (YELLOW) Urine Appearance (CLEAR) Urine pH (5.0-8.0) Ur Specific [place] (1.008-1.030) Urine Protein (NEGATIVE) mg/dL Urine Glucose (UA) (NEGATIVE) mg/dL Urine Ketones (NEGATIVE) mg/dL Urine Occult Blood (NEGATIVE) Urine Nitrite (NEGATIVE) Urine Bilirubin (NEGATIVE) Urine Urobilinogen (0.2-1.0) EU/dL Ur Leukocyte Esterase (NEGATIVE) Urine RBC (0-5) Urine WBC (0-5) Ur Epithelial Cells Amorphous Sediment Urine Bacteria Urine Mucus Salicylates (2.0-20.0) mg/dL Urine Opiates Screen Negative (NEGATIVE) Ur Oxycodone Screen Negative (NEGATIVE) Urine Methadone Screen Negative (NEGATIVE) Ur Propoxyphene Screen Negative (NEGATIVE) Acetaminophen (10.0-30.0) ug/mL Ur Barbiturates Screen Negative (NEGATIVE) Ur Tricyclics Screen Negative (NEGATIVE) Ur Phencyclidine Scrn Negative (NEGATIVE) Ur Amphetamine Screen Negative (NEGATIVE) U Methamphetamines Scrn Negative (NEGATIVE) Urine MDMA Screen Negative (NEGATIVE) U Benzodiazepines Scrn Presumptive positive H (NEGATIVE) U Cocaine Metab Screen Negative (NEGATIVE) U Marijuana (THC) Screen Negative (NEGATIVE) 03/14/19 03/14/19 03/14/19 Range/Units 00:40 01:09 01:09 WBC (4.5-11.0) K/uL RBC (4.30-5.90) M/uL Hgb (12.0-15.0) g/dL Hct (40.0-54.0) % MCV (80-98) fL MCH (27-31) pg MCHC (32-36) % Plt Count (150-400) K/uL Neut % (Auto) (36-66) % Lymph % (Auto) (24-44) % [place] % (Auto) (2-6) % Eos % (Auto) (2-4) % Baso % (Auto) (0-1) % Sodium (140-148) mmol/L Potassium (3.6-5.2) mmol/L Chloride (100-108) mmol/L Carbon Dioxide (21-32) mmol/L Anion Gap (5.0-14.0) mmol/L BUN (7-18) mg/dL Creatinine (0.8-1.3) mg/dL Est Cr Clr Drug Dosing mL/min Estimated GFR (MDRD) (>60) Glucose (74-106) mg/dL Calcium (8.5-10.1) mg/dL Total Bilirubin (0.2-1.0) mg/dL AST (15-37) U/L ALT (12-78) U/L Alkaline Phosphatase (46-116) U/L Total Protein (6.4-8.2) g/dL Albumin (3.4-5.0) g/dL Globulin (2.3-3.5) g/dL Albumin/Globulin Ratio (1.2-2.2) Urine Color Yellow (YELLOW) Urine Appearance Clear (CLEAR) Urine pH 5.5 (5.0-8.0) Ur Specific [place] >= 1.030 (1.008-1.030) Urine Protein Negative (NEGATIVE) mg/dL Urine Glucose (UA) Negative (NEGATIVE) mg/dL Urine Ketones Negative (NEGATIVE) mg/dL Urine Occult Blood Trace-intact H (NEGATIVE) Urine Nitrite Negative (NEGATIVE) Urine Bilirubin Negative (NEGATIVE) Urine Urobilinogen 0.2 (0.2-1.0) EU/dL Ur Leukocyte Esterase Negative (NEGATIVE) Urine RBC 0-5 (0-5) Urine WBC Not seen (0-5) Ur Epithelial Cells Not seen Amorphous Sediment Many Urine Bacteria Not seen Urine Mucus Not seen Salicylates 4.0 (2.0-20.0) mg/dL Urine Opiates Screen (NEGATIVE) Ur Oxycodone Screen (NEGATIVE) Urine Methadone Screen (NEGATIVE) Ur Propoxyphene Screen (NEGATIVE) Acetaminophen 0.0 L (10.0-30.0) ug/mL Ur Barbiturates Screen (NEGATIVE) Ur Tricyclics Screen (NEGATIVE) Ur Phencyclidine Scrn (NEGATIVE) Ur Amphetamine Screen (NEGATIVE) U Methamphetamines Scrn (NEGATIVE) Urine MDMA Screen (NEGATIVE) U Benzodiazepines Scrn (NEGATIVE) U Cocaine Metab Screen (NEGATIVE) U Marijuana (THC) Screen (NEGATIVE) Meds: Medications Discontinued Medications Generic Name Dose Route Start Last Admin Trade Name Freq PRN Reason Stop Dose Admin Sodium Chloride 1,000 mls @ 999 mls/hr 03/13/19 23:15 03/13/19 23:23 Normal Saline IV 999 mls/hr ASDIRECTED LUCERO Administration Sodium Chloride 1,000 mls @ 999 mls/hr 03/13/19 23:30 03/14/19 00:23 Normal Saline IV 999 mls/hr ASDIRECTED LUCERO Administration Ondansetron HCl 4 mg 03/13/19 23:08 03/13/19 23:23 Zofran IVPUSH 03/13/19 23:09 4 mg ONETIME ONE Administration - Re-Assessments/Exams Free Text/Narrative Re-Assessment/Exam: 03/13/19 23:28 pt arrived with ahistory of taking 30 celexa. pt has continued to have good vital signs and he remains alert and able to protect his airway.Pt had a ekhg which did not look worrysome. 03/14/19 00:13 Departure - Departure Time of Disposition: 00:14 Disposition: Home, Self-Care 01 Condition: Fair Clinical Impression: Depression, Suicidal behavior with attempted self-injury, Drug overdose - Discharge Information Referrals: Mat Sahu, SHAKER REPAIRER [Primary Care Provider] - Forms: ED Department Discharge Care Plan Goals: transfer to [facility].
[2019-03-13] MEDS ORDERED: Sodium Chloride 0.9% 1,000 ML IV SCH ×2 (23:15→23:30)
== END 2019-03-14 01:21 | disposition home or self-care (01) ==
LOC: JP.ED 22:48
DX: T43.222A Poisoning by selective serotonin reuptake inhibitors, intentional self-harm, initial encounter (principal); F32.9 Major depressive disorder, single episode, unspecified; J44.9 Chronic obstructive pulmonary disease, unspecified; F41.9 Anxiety disorder, unspecified; Z91.012 Allergy to eggs; Z88.8 Allergy status to other drugs, medicaments and biological substances; Z88.5 Allergy status to narcotic agent; Z79.899 Other long term (current) drug therapy
CPT/HCPCS: 36415; 80053; 80305; 80329; 81001; 85025; 93005; 96361; 96374; 99284; J2405; J7030; G0480

== ENCOUNTER 2020-05-16 11:26 | Emergency (ER) | payer MEDICAID ==
[2020-05-16 11:49] VITALS: BP 154/91; PULSE 86
[2020-05-16] MEDS ORDERED: Acetaminophen/HYDROcodone 325-5 MG Tab PO ONE (12:03)
--- NOTE | 2020-05-16 12:08 | EDM.PDOC ---
ED HPI GENERAL MEDICAL PROBLEM - General Chief Complaint: Lower Extremity Injury/Pain Stated Complaint: KNEE PAIN LEFT Time Seen by Provider: 05/16/20 12:04 Source of Information: Reports: Patient, Old Records, RN History Limitations: Reports: No Limitations - History of Present Illness INITIAL COMMENTS - FREE TEXT/NARRATIVE: 64 yo male here with L knee pain. Was seen by ortho a week ago and had a cortisone injection which has not helped. Is taking both acetaminophen and Aleve without benefit. Has a walker at home, but is not using it. Has already had a knee replacement on the right. Onset: Gradual Duration: Chronic, Getting Worse Location: Reports: Lower Extremity, Left Quality: Reports: Ache Severity: Moderate Improves with: Reports: Rest Worsens with: Reports: Movement Context: Reports: Other (See HPI) Associated Symptoms: Reports: No Other Symptoms Treatments PODIATRY ASSISTANT: Reports: Acetaminophen, NSAIDS - Related Data Allergies Allergy/AdvReac Type Severity Reaction Status Date / Time Egg Derived Allergy Cannot Verified 05/16/20 11:49 Remember hylan G-F 20 [From Synvisc] Allergy Cannot Verified 05/16/20 11:49 Remember tramadol Allergy Cannot Verified 05/16/20 11:49 Remember celecoxib [From Celebrex] AdvReac Nausea Verified 05/16/20 11:49 Home Meds: Home Meds Albuterol [Ventolin HFA] 2 puff INH Q4H PRN 11/22/16 [History] Tamsulosin [Flomax] 0.4 mg PO DAILY 10/15/17 [History] Sertraline [Zoloft] 1 tab PO DAILY 05/16/20 [History] Past Medical History HEENT History: Reports: Impaired Vision Other HEENT History: reading glasses Respiratory History: Reports: COPD Gastrointestinal History: Reports: Diverticulosis Genitourinary History: Reports: None Musculoskeletal History: Reports: Back Pain, Chronic, Fracture, Other (See Below) Other Musculoskeletal History: low back pain. L hip pain Neurological History: Reports: Other (See Below) Other Neuro History: dizzy after coughing Psychiatric History: Reports: Anxiety, Depression, Panic Attack Endocrine/Metabolic History: Reports: Obesity/BMI 30+ - Infectious Disease History Infectious Disease History: Reports: Chicken Pox, Measles, Mumps, Scarlet Fever, Shingles - Past Surgical History Head Surgeries/Procedures: Reports: None HEENT Surgical History: Reports: None Respiratory Surgical History: Reports: None GI Surgical History: Reports: Colonoscopy Other Male Surgeries/Procedures: DIFFICULTY WITH URINATING Endocrine Surgical History: Reports: None Musculoskeletal Surgical History: Reports: Knee Replacement, Other (See Below) Other Musculoskeletal Surgeries/Procedures:: R TKA 2016 Dermatological Surgical History: Reports: None Social & Family History - Family History HEENT: Reports: Impaired Vision Cardiac: Reports: Bypass, Heart Failure, [place] Respiratory: Reports: COPD OBGYN: Reports: Recurrent Spontaneous Musculoskeletal: Reports: Back pain, Chronic Neurological: Reports: Dementia Psychiatric: Reports: Bipolar - Tobacco Use Tobacco Use Status *Q: Current Every Day Tobacco User Years of Tobacco use: 40 Packs/Tins Daily: 0.5 - Caffeine Use Caffeine Use: Reports: Coffee Other Caffeine Use: 4-5 CUPS COFFEE /DAY Caffeine Use Comment: 3-4 cups of coffee per day - Living Situation & Occupation Living situation: Reports: (Lives with his who is a chronic alcoholic. Has a 30-year-old son who has issues with chemical dependency.) Review of Systems - Review of Systems Review Of Systems: See Below Constitutional: Reports: No Symptoms Musculoskeletal: Reports: Joint Pain (L knee) Skin: Reports: No Symptoms Neurological: Reports: No Symptoms ED EXAM, GENERAL - Physical Exam Exam: See Below Exam Limited By: No Limitations General Appearance: Alert, WD/WN, No Apparent Distress Extremities: Normal Inspection, No Pedal Edema, Limited Range of Motion (due to pain). No: Joint Swelling, Increased Warmth, Redness Neurological: Alert, Oriented, CN II-XII Intact, Normal Cognition, No Motor/Sensory Deficits Psychiatric: Normal Affect, Normal Mood Skin Exam: Warm, Dry, Intact, Normal Color, No Rash Course - Vital Signs Last Recorded V/S: Last Vital Signs Temp 36.1 C 05/16/20 11:57 Pulse 86 05/16/20 11:57 Resp 16 05/16/20 11:57 BP 154/91 H 05/16/20 11:57 Pulse Ox 96 05/16/20 11:57 - Orders/Labs/Meds Orders: Active Orders 24 hr Category Date Time Status Acetaminophen/HYDROcodone [Bath 325-5 MG] Med 05/16/20 12:03 Once 1 tab PO ONETIME ONE Departure - Departure Time of Disposition: 12:15 Disposition: Home, Self-Care 01 Condition: Fair Clinical Impression: Degenerative arthritis of left knee Qualifiers: Osteoarthritis type: primary Qualified Code(s): M17.12 - Unilateral primary osteoarthritis, left knee - Discharge Information *PRESCRIPTION DRUG MONITORING PROGRAM REVIEWED*: Yes *COPY OF PRESCRIPTION DRUG MONITORING REPORT IN PATIENT CORINE: Yes Referrals: PCP,None [Primary Care Provider] - Additional Instructions: Continue your Aleve up to 2 every 8 hrs with food. Use either acetaminophen OR Bath for added relief. Use your walker to take weight off the knee when walking. F/U with your orthopedic doctor later this week. Sepsis Event Note (ED) - Evaluation Sepsis Screening Result: No Definite Risk - Focused Exam Vital Signs: Vital Signs Temp Pulse Resp BP Pulse Ox 05/16/20 11:57 36.1 C 86 16 154/91 H 96 05/16/20 11:47 36.1 C 86 16 154/91 H 96 - My Orders Last 24 Hours: My Active Orders 05/16/20 12:03 Acetaminophen/HYDROcodone [Bath 325-5 MG] 1 tab PO ONETIME ONE - Assessment/Plan Last 24 Hours: My Active Orders 05/16/20 12:03 Acetaminophen/HYDROcodone [Bath 325-5 MG] 1 tab PO ONETIME ONE
== END 2020-05-16 12:15 | disposition home or self-care (01) ==
LOC: JP.ED 11:26
DX: M17.12 Unilateral primary osteoarthritis, left knee (principal); F17.210 Nicotine dependence, cigarettes, uncomplicated; J44.9 Chronic obstructive pulmonary disease, unspecified; E66.9 Obesity, unspecified; F41.9 Anxiety disorder, unspecified; F32.9 Major depressive disorder, single episode, unspecified; Z91.012 Allergy to eggs; Z88.5 Allergy status to narcotic agent; Z88.1 Allergy status to other antibiotic agents; Z79.899 Other long term (current) drug therapy
CPT/HCPCS: 99283; A9270

== ENCOUNTER 2020-05-21 10:26 | Emergency (ER) | payer MEDICAID ==
[2020-05-21 11:00] VITALS: BP 155/93; PULSE 90
--- NOTE | 2020-05-21 11:57 | EDM.PDOC ---
ED HPI GENERAL MEDICAL PROBLEM - General Chief Complaint: Lower Extremity Injury/Pain Stated Complaint: LEFT LEG PAIN Time Seen by Provider: 05/21/20 11:00 Source of Information: Reports: Patient, RN History Limitations: Reports: No Limitations - History of Present Illness Onset: Gradual Duration: Chronic Location: Reports: Lower Extremity, Left Quality: Reports: Ache, Stabbing Severity: Moderate Improves with: Reports: Rest Worsens with: Reports: Movement Context: Reports: Activity Associated Symptoms: Reports: No Other Symptoms - Related Data Allergies Allergy/AdvReac Type Severity Reaction Status Date / Time Egg Derived Allergy Cannot Verified 05/21/20 11:00 Remember hylan G-F 20 [From Synvisc] Allergy Cannot Verified 05/21/20 11:00 Remember tramadol Allergy Cannot Verified 05/21/20 11:00 Remember celecoxib [From Celebrex] AdvReac Nausea Verified 05/21/20 11:00 Home Meds: Home Meds Albuterol [Ventolin HFA] 2 puff INH Q4H PRN 11/22/16 [History] Tamsulosin [Flomax] 0.4 mg PO DAILY 10/15/17 [History] Acetaminophen/HYDROcodone [[place] 325-5 MG] 1 - 2 tab PO Q6H PRN #15 tab 05/16/20 [Rx] Sertraline [Zoloft] 1 tab PO DAILY 05/16/20 [History] Cyclobenzaprine [Flexeril] 10 mg PO BEDTIME 05/21/20 [History] Diclofenac Sodium [Voltaren 1% Gel] 1 applic TOP QID PRN 05/21/20 [History] Past Medical History HEENT History: Reports: Impaired Vision Other HEENT History: reading glasses Respiratory History: Reports: COPD Gastrointestinal History: Reports: Diverticulosis Genitourinary History: Reports: None Musculoskeletal History: Reports: Back Pain, Chronic, Fracture, Other (See Below) Other Musculoskeletal History: low back pain. L hip pain Neurological History: Reports: Other (See Below) Other Neuro History: dizzy after coughing Psychiatric History: Reports: Anxiety, Depression, Panic Attack Endocrine/Metabolic History: Reports: Obesity/BMI 30+ - Infectious Disease History Infectious Disease History: Reports: Chicken Pox, Measles, Mumps, Scarlet Fever, Shingles - Past Surgical History Head Surgeries/Procedures: Reports: None HEENT Surgical History: Reports: None Respiratory Surgical History: Reports: None GI Surgical History: Reports: Colonoscopy Other Male Surgeries/Procedures: DIFFICULTY WITH URINATING Endocrine Surgical History: Reports: None Musculoskeletal Surgical History: Reports: Knee Replacement, Other (See Below) Other Musculoskeletal Surgeries/Procedures:: R TKA 2016 Dermatological Surgical History: Reports: None Social & Family History - Family History HEENT: Reports: Impaired Vision Cardiac: Reports: Bypass, Heart Failure, [place] Respiratory: Reports: COPD OBGYN: Reports: Recurrent Spontaneous Musculoskeletal: Reports: Back pain, Chronic Neurological: Reports: Dementia Psychiatric: Reports: Bipolar - Caffeine Use Caffeine Use: Reports: Coffee Other Caffeine Use: 4-5 CUPS COFFEE /DAY Caffeine Use Comment: 3-4 cups of coffee per day - Living Situation & Occupation Living situation: Reports: (Lives with his who is a chronic alcoholic. Has a 30-year-old son who has issues with chemical dependency.) Review of Systems - Review of Systems Review Of Systems: See Below Constitutional: Reports: No Symptoms Eyes: Reports: No Symptoms Ears: Reports: No Symptoms Nose: Reports: No Symptoms Mouth/Throat: Reports: No Symptoms Respiratory: Reports: No Symptoms Cardiovascular: Reports: No Symptoms GI/Abdominal: Reports: No Symptoms Genitourinary: Reports: No Symptoms Musculoskeletal: Reports: Leg Pain Skin: Reports: No Symptoms Neurological: Reports: No Symptoms ED EXAM, GENERAL - Physical Exam Exam: See Below Free Text/Narrative:: 64-year-old male complains of recurrent continuing intermittent pain just above his left knee with a recent history of injection in the knee and announcement that he needs a new knee but needs to go through the process. He has tried multiple different medications for discomfort but nothing really seems to work. He is awaiting a knee replacement and has an appointment upcoming on the following Sunday. Review of records shows that he has multiple comorbidities that would explain why he waited pain in his knee His exam appears to be generally normal although he has poor dentition. Knee exam shows scar on the right from a prior knee replacement. He has no redness swelling or other evidence of inflammation in the left knee and no pain on just laying there. Exam Limited By: No Limitations General Appearance: Alert, WD/WN, No Apparent Distress, Anxious Nose: Normal Inspection Throat/Mouth: Normal Inspection, Other (Poor dentition) Head: Atraumatic Neck: Normal Inspection Respiratory/Chest: No Respiratory Distress Cardiovascular: Regular Rate, Rhythm GI/Abdominal: Normal Bowel Sounds Back Exam: Normal Inspection Extremities: Other (No tenderness redness or swelling about the left knee. No tenderness or swelling or redness just above the knee where he describes the discomfort. He has a scar in his right knee from replacement) Psychiatric: Normal Affect, Normal Mood Skin Exam: Warm, Intact Course - Vital Signs Text/Narrative:: Old records reviewed. He said multiple work-ups and attempts at medications. He does have an appoint with orthopedics this coming Sunday which is the earliest that we can possibly getting in. Last Recorded V/S: Last Vital Signs Temp 36.0 C L 05/21/20 10:59 Pulse 90 05/21/20 10:59 Resp 20 05/21/20 10:59 BP 155/93 H 05/21/20 10:59 Pulse Ox 97 05/21/20 10:59 Departure - Departure Time of Disposition: 12:01 Disposition: Home, Self-Care 01 Condition: Good Clinical Impression: Knee pain, chronic - Discharge Information Instructions: Chronic Knee Pain, Adult, [id number] Referrals: PCP,None [Primary Care Provider] - Forms: ED Department Discharge Sepsis Event Note (ED) - Evaluation Sepsis Screening Result: No Definite Risk - Focused Exam Vital Signs: Vital Signs Temp Pulse Resp BP Pulse Ox 05/21/20 10:59 36.0 C L 90 20 155/93 H 97
== END 2020-05-21 12:19 | disposition home or self-care (01) ==
LOC: JP.ED 10:26
DX: M25.562 Pain in left knee (principal); G89.29 Other chronic pain; J44.9 Chronic obstructive pulmonary disease, unspecified; F41.9 Anxiety disorder, unspecified; F32.9 Major depressive disorder, single episode, unspecified; E66.9 Obesity, unspecified; Z91.012 Allergy to eggs; Z88.5 Allergy status to narcotic agent; Z88.8 Allergy status to other drugs, medicaments and biological substances; Z68.34 Body mass index [BMI] 34.0-34.9, adult
CPT/HCPCS: 99283

== ENCOUNTER 2020-06-07 07:05 | Inpatient (IN) | payer MEDICAID ==
[~2020-06-07 07:05] MED LIST: Bupivacaine 0.5% 30 ML SDV ONE; Povidone-Iodine 10% Soln 118.25 ML Bottle ONE
[2020-06-07] MEDS ORDERED: Lactated Ringers 1,000 ML IV SCH (07:45)
[2020-06-07] MEDS: Nozin Nasal Sanitizer NASBOTH SCH ×2 (08:21→22:12)
[2020-06-07] MEDS ORDERED: ceFAZolin 2 GM in Premix Bag 1 BAG IV ONE (08:30)
[2020-06-07] MEDS ORDERED: Tranexamic Acid 1,000 MG in Sodium Chloride 0.9% 50 ML IV ONE (08:30)
[2020-06-07] MEDS ORDERED: fentaNYL 100 MCG/2 ML SDV ONE (08:34)
[2020-06-07] MEDS ORDERED: Midazolam 1 MG/ML 2 ML SDV ONE ×2 (08:35→11:13)
[2020-06-07] MEDS ORDERED: Propofol 200 MG/20 ML SDV ONE ×2 (08:35→10:51)
[2020-06-07] MEDS ORDERED: Lactated Ringers 1,000 ML ONE (10:51)
[2020-06-07] MEDS ORDERED: Tranexamic Acid 1,000 MG in Sodium Chloride 0.9% 50 ML IV PRN (11:30)
[2020-06-07] MEDS ORDERED: Ondansetron 4 MG/2 ML SDV IVPUSH PRN (12:05)
[2020-06-07] MEDS ORDERED: Acetaminophen/HYDROcodone 325-5 MG Tab PO PRN (12:05)
[2020-06-07] MEDS ORDERED: Acetaminophen 325 MG Tab PO PRN (12:05)
[2020-06-07] MEDS ORDERED: Magnesium Hydroxide 400 MG/5 ML Susp 30 ML Cup PO PRN (12:05)
[2020-06-07] MEDS ORDERED: Albuterol 8 GM Inhaler INH PRN (12:17)
[2020-06-07] MEDS: Ketorolac 30 MG/ML SDV IVPUSH SCH ×2 (13:30→22:13)
[2020-06-07] MEDS: Acetaminophen/oxyCODONE 325-5 MG Tab PO PRN ×2 (13:53→18:10)
--- NOTE | 2020-06-07 14:41 | CR ---
Knee 1V or 2V Lt CLINICAL HISTORY: Status post knee arthroplasty FINDINGS: Patient is status post recent 3 component total knee arthroplasty. Components appear well seated. There is some intra-articular and subcutis air. IMPRESSION: Status post recent 3 component total knee arthroplasty
[2020-06-07] MEDS: Morphine 2 MG/ML SYRINGE IVPUSH PRN ×2 (14:52→16:22)
[2020-06-07] MEDS: ceFAZolin 1 GM in Premix Bag 1 BAG IV SCH (16:16)
[2020-06-07] MEDS ORDERED: Melatonin 3 MG Tab PO PRN (20:23)
[2020-06-07] MEDS ORDERED: Nozin Nasal Sanitizer NASBOTH SCH (21:00)
[2020-06-07] MEDS: Cyclobenzaprine 10 MG Tab PO SCH (22:12)
[2020-06-07] MEDS: Docusate Sodium 100 MG Cap PO SCH (22:12)
[2020-06-07] MEDS: Sodium Chloride 0.9% 1,000 ML IV SCH (22:22)
[2020-06-08] MEDS: ceFAZolin 1 GM in Premix Bag 1 BAG IV SCH ×2 (00:17→07:58)
[2020-06-08] MEDS: Acetaminophen/oxyCODONE 325-5 MG Tab PO PRN ×4 (05:19→22:22)
[2020-06-08] MEDS: Ketorolac 30 MG/ML SDV IVPUSH SCH ×3 (05:20→20:59)
[2020-06-08] MEDS: Sodium Chloride 0.9% 1,000 ML IV SCH (05:28)
[2020-06-08] MEDS: Tiotropium BR/Olodaterol HCL 4 GM Inhalation Spray 2.5mcg/1 dose; 10 doses INH SCH (06:59)
[2020-06-08] MEDS: Sertraline 50 MG Tab PO SCH (07:59)
[2020-06-08] MEDS: Enoxaparin 30 MG/0.3 ML Syringe SUBCUT SCH (07:59)
[2020-06-08] MEDS: Tamsulosin 0.4 MG Cap.ER PO SCH (07:59)
[2020-06-08] MEDS: Docusate Sodium 100 MG Cap PO SCH ×2 (07:59→20:58)
[2020-06-08] MEDS: Nozin Nasal Sanitizer NASBOTH SCH ×2 (08:00→20:57)
--- NOTE | 2020-06-08 12:16 | PCM.SURGPN ---
- General Info Date of Service: 06/08/20 Date of Surgery/Procedure: 06/07/20 POD#: 1 Post-Op Diagnosis: Left Knee Osteoarthritis Functional Status: Reports: Pain Controlled, Tolerating Diet, Ambulating (with four wheel walker ), Incentive Spirometry - Review of Systems General: Reports: No Symptoms HEENT: Reports: No Symptoms Pulmonary: Reports: No Symptoms Cardiovascular: Reports: No Symptoms Gastrointestinal: Reports: No Symptoms Musculoskeletal: Reports: Leg Pain, Joint Pain Skin: Reports: No Symptoms Neurological: Reports: No Symptoms Psychiatric: Reports: No Symptoms - Patient Data Vitals - Most Recent: Last Vital Signs Temp 97.6 F 06/08/20 11:00 Pulse 99 06/08/20 11:00 Resp 16 06/08/20 11:00 BP 143/75 H 06/08/20 11:00 Pulse Ox 91 L 06/08/20 11:00 Weight - Most Recent: 260 lb I&O - Last 24 Hours: Intake & Output 06/07/20 06/08/20 06/08/20 22:59 06:59 14:59 Intake Total 350 1018 530 Output Total 630 400 Balance -280 618 530 Lab Results Last 24 Hrs: Laboratory Results - last 24 hr 06/08/20 Range/Units 04:25 WBC 7.5 (4.5-11.0) K/uL RBC 3.65 L (4.30-5.90) M/uL Hgb 11.6 L D (12.0-15.0) g/dL Hct 36.6 L (40.0-54.0) % MCV 100 H (80-98) fL MCH 32 H (27-31) pg MCHC 32 (32-36) % Plt Count 152 (150-400) K/uL Med Orders - Current: Current Medications Acetaminophen (Tylenol) 650 mg PO Q4H PRN PRN Reason: Pain/Fever Hydrocodone Bitart/Acetaminophen ([place] 325-5 Mg) 1 tab PO Q3H PRN PRN Reason: Pain (mild 1-3) Albuterol (Ventolin Hfa) 0 gm INH Q4H PRN PRN Reason: Shortness of Breath Bandage/Support Products ( Nasal Window Sash Installer) 1 applic NASBOTH BID [facility] Stop: 06/13/20 21:01 Last Admin: 06/08/20 08:00 Dose: 1 applic Documented by: Cyclobenzaprine HCl (Flexeril) 10 mg PO BEDTIME [facility] Last Admin: 06/07/20 22:12 Dose: 10 mg Documented by: Docusate Sodium (Colace) 100 mg PO BID [facility] Last Admin: 06/08/20 07:59 Dose: 100 mg Documented by: Enoxaparin Sodium (Lovenox) 30 mg SUBCUT DAILY [facility] Last Admin: 06/08/20 07:59 Dose: 30 mg Documented by: Sodium Chloride (Normal Saline) 1,000 mls @ 125 mls/hr IV ASDIRECTED [facility] Last Admin: 06/08/20 05:28 Dose: 125 mls/hr Documented by: Ketorolac Tromethamine (Toradol) 30 mg IVPUSH Q8H [facility] Stop: 06/09/20 06:01 Last Admin: 06/08/20 05:20 Dose: 30 mg Documented by: Magnesium Hydroxide (Milk Of Magnesia) 30 ml PO BID PRN PRN Reason: Constipation Melatonin (Melatonin) 9 mg PO BEDTIME PRN PRN Reason: Insomnia Morphine Sulfate (Morphine) 2 mg IVPUSH Q1H PRN PRN Reason: Breakthrough Pain Last Admin: 06/07/20 16:22 Dose: 2 mg Documented by: Ondansetron HCl (Zofran) 4 mg IVPUSH Q4H PRN PRN Reason: Nausea/Vomiting Oxycodone/Acetaminophen (Percocet 325-5 Mg) 1 - 2 tab PO Q4H PRN PRN Reason: Pain (moderate 4-6) Last Admin: 06/08/20 05:19 Dose: 2 tab Documented by: Sertraline HCl (Zoloft) 100 mg PO DAILY [facility] Last Admin: 06/08/20 07:59 Dose: 100 mg Documented by: Tamsulosin HCl (Flomax) 0.4 mg PO DAILY [facility] Last Admin: 06/08/20 07:59 Dose: 0.4 mg Documented by: Discontinued Medications Bupivacaine HCl (Marcaine 0.5%) Confirm Administered Dose 30 ml .ROUTE .STK-MED ONE Stop: 06/07/20 06:36 Fentanyl (Sublimaze) Confirm Administered Dose 100 mcg .ROUTE .STK-MED ONE Stop: 06/07/20 08:35 Cefazolin Sodium/Dextrose 2 gm (/ Premix) 50 mls @ 100 mls/hr IV ONETIME ONE Stop: 12/21/20 08:59 Last Admin: 06/07/20 09:55 Dose: 100 mls/hr Documented by: Lactated Ringer's (Ringers, Lactated) 1,000 mls @ 75 mls/hr IV ASDIRECTED [facility] Last Admin: 06/07/20 08:19 Dose: 75 mls/hr Documented by: Tranexamic Acid 1,000 mg/ (Sodium Chloride) 60 mls @ 240 mls/hr IV ONETIME ONE Stop: 06/07/20 08:44 Last Admin: 06/07/20 09:56 Dose: 240 mls/hr Documented by: Tranexamic Acid 1,000 mg/ (Sodium Chloride) 60 mls @ 240 mls/hr IV ONETIME PRN PRN Reason: IF REQUESTED Lactated Ringer's (Ringers, Lactated) Confirm Administered Dose 1,000 mls @ as directed .ROUTE .STK-MED ONE Stop: 06/07/20 10:52 Cefazolin Sodium/Dextrose 1 gm (/ Premix) 50 mls @ 100 mls/hr IV Q8H [facility] Stop: 06/08/20 08:29 Last Admin: 06/08/20 07:58 Dose: 100 mls/hr Documented by: Midazolam HCl (Versed 1 Mg/Ml) Confirm Administered Dose 2 mg .ROUTE .STK-MED ONE Stop: 06/07/20 08:36 Midazolam HCl (Versed 1 Mg/Ml) Confirm Administered Dose 2 mg .ROUTE .STK-MED ONE Stop: 06/07/20 11:14 Povidone Iodine (Betadine 10% Soln) Confirm Administered Dose 1 ml .ROUTE .STK- MED ONE Stop: 06/07/20 06:36 Last Admin: 06/07/20 10:40 Dose: 15 ml Documented by: Propofol (Diprivan 20 Ml) Confirm Administered Dose 200 mg .ROUTE .STK-MED ONE Stop: 06/07/20 08:36 Propofol (Diprivan 20 Ml) Confirm Administered Dose 200 mg .ROUTE .STK-MED ONE Stop: 06/07/20 10:52 - Exam Wound/Incisions: No Drainage General: Alert, Oriented, Cooperative Extremities: Leg Pain (Left Knee Pain), Limited Range of Motion Neurological: No New Focal Deficit Psy/Mental Status: Alert, Normal Mood Sepsis Event Note - Evaluation Sepsis Screening Result: No Definite Risk - Focused Exam Vital Signs: Vital Signs Temp Temp Pulse Resp BP Pulse Ox 06/08/20 11:00 97.6 F 99 16 143/75 H 91 L 06/08/20 07:12 97.4 F 96 16 131/76 88 L 06/08/20 03:40 98.7 F 103 H 16 128/83 98 - Problem List & Annotations (1) Status post total left knee replacement SNOMED Code(s): 1095837734278, 8709739640230 Code(s): Z96.652 - PRESENCE OF LEFT ARTIFICIAL KNEE JOINT Status: Acute Current Visit: Yes - Problem List Review Problem List Initiated/Reviewed/Updated: Yes - My Orders Last 24 Hours: Active Orders 24 hr Category Date Time Status Patient Status [ADT] Routine ADT 06/07/20 12:05 Active Ambulate [RC] QID Care 06/07/20 12:05 Active Antiembolic Devices [RC] .Routine Care 06/07/20 12:06 Active DC Cortes Catheter [Urinary Catheter Removal] [RC] PER Care 06/08/20 09:05 Active UNIT ROUTINE Head of Bed Elevation [RC] ASDIRECTED Care 06/07/20 12:05 Active Intake and Output [RC] QSHIFT Care 06/07/20 12:05 Active May Shower [RC] ASDIRECTED Care 06/07/20 12:05 Active Neurovascular Check [RC] Q4H Care 06/07/20 12:05 Active Notify Provider Vital Signs [RC] ASDIRECTED Care 06/07/20 12:05 Active Pneumonia Education [RC] UPON Care 06/07/20 12:05 Active RT Post Treatment Assessment [RC] Click to Edit Care 06/07/20 12:17 Active Up to Chair [RC] QID Care 06/07/20 12:05 Active VTE/DVT Education [RC] Click to Edit Care 06/07/20 12:06 Active Vital Signs [RC] PER UNIT ROUTINE Care 06/07/20 12:05 Active Wound Care [RC] Q12H Care 06/07/20 12:05 Active Consult to Case Management/Slitter Scorer [CONS] Cons 06/07/20 12:05 Active Routine OT Evaluation and Treatment [CONS] Routine Cons 06/07/20 12:05 Active PT Evaluation and Treatment [CONS] Routine Cons 06/07/20 12:05 Active PT Evaluation and Treatment [CONS] Routine Cons 06/07/20 12:05 Active Regular Diet [DIET] Diet 06/07/20 Dinner Active Acetaminophen [TylenoL] Med 06/07/20 12:05 Active 650 mg PO Q4H PRN Acetaminophen/HYDROcodone [[place] 325-5 MG] Med 06/07/20 12:05 Active 1 tab PO Q3H PRN Acetaminophen/oxyCODONE [Percocet 325-5 MG] Med 06/07/20 12:05 Active 1 - 2 tab PO Q4H PRN Albuterol [Ventolin HFA] Med 06/07/20 12:17 Active 0 gm INH Q4H PRN Cyclobenzaprine [Flexeril] Med 06/07/20 21:00 Active 10 mg PO BEDTIME Docusate Sodium [Colace] Med 06/07/20 21:00 Active 100 mg PO BID Enoxaparin [Lovenox] Med 06/08/20 09:00 Active 30 mg SUBCUT DAILY Ketorolac [Toradol] Med 06/07/20 14:00 Active 30 mg IVPUSH Q8H Magnesium Hydroxide [Milk of Magnesia] Med 06/07/20 12:05 Active 30 ml PO BID PRN Melatonin Med 06/07/20 20:23 Active 9 mg PO BEDTIME PRN Morphine Med 06/07/20 12:05 Active 2 mg IVPUSH Q1H PRN Ondansetron [Zofran] Med 06/07/20 12:05 Active 4 mg IVPUSH Q4H PRN Sertraline [Zoloft] Med 06/08/20 09:00 Active 100 mg PO DAILY Sodium Chloride 0.9% [Normal Saline] 1,000 ml Med 06/07/20 12:15 Active IV ASDIRECTED Tamsulosin [Flomax] Med 06/08/20 09:00 Active 0.4 mg PO DAILY Tiotropium BR/Olodaterol HCL [Stiolto Respimat] Med 06/08/20 07:00 Active 0 gm INH DAILY@0700 Antiembolic Hose [OM.PC] Routine Oth 06/07/20 12:05 Ordered DVT/VTE Prophylaxis Reflex [OM.PC] Routine Oth 06/07/20 12:05 Ordered Ice Therapy [OM.PC] Per Unit Routine Oth 06/07/20 12:05 Ordered Medication Continuation Instructions [OM.PC] Per Unit Oth 06/07/20 12:05 Ordered Routine Oral Care [OM.PC] Routine Oth 06/07/20 12:05 Ordered Sequential Compression Device [OM.PC] Routine Oth 06/07/20 12:05 Ordered Resuscitation Status Routine Resus Stat 06/07/20 12:05 Ordered Medication Orders Acetaminophen (Tylenol) 650 mg PO Q4H PRN PRN Reason: Pain/Fever Hydrocodone Bitart/Acetaminophen ([place] 325-5 Mg) 1 tab PO Q3H PRN PRN Reason: Pain (mild 1-3) Albuterol (Ventolin Hfa) 0 gm INH Q4H PRN PRN Reason: Shortness of Breath Bandage/Support Products ( Nasal Window Sash Installer) 1 applic NASBOTH BID [facility] Stop: 06/13/20 21:01 Last Admin: 06/08/20 08:00 Dose: 1 applic Documented by: Admin: 06/07/20 22:12 Dose: 1 applic Documented by: Admin: 06/07/20 08:21 Dose: 1 applic Documented by: ABDIRAHMAN Cyclobenzaprine HCl (Flexeril) 10 mg PO BEDTIME [facility] Last Admin: 06/07/20 22:12 Dose: 10 mg Documented by: DHARA Docusate Sodium (Colace) 100 mg PO BID [facility] Last Admin: 06/08/20 07:59 Dose: 100 mg Documented by: Admin: 06/07/20 22:12 Dose: 100 mg Documented by: DHARA Enoxaparin Sodium (Lovenox) 30 mg SUBCUT DAILY [facility] Last Admin: 06/08/20 07:59 Dose: 30 mg Documented by: BASILIA Sodium Chloride (Normal Saline) 1,000 mls @ 125 mls/hr IV ASDIRECTED [facility] Last Admin: 06/08/20 05:28 Dose: 125 mls/hr Documented by: Infusion: 06/08/20 05:28 Dose: 125 mls/hr Documented by: Admin: 06/07/20 22:22 Dose: 125 mls/hr Documented by: DHARA Ketorolac Tromethamine (Toradol) 30 mg IVPUSH Q8H [facility] Stop: 06/09/20 06:01 Last Admin: 06/08/20 05:20 Dose: 30 mg Documented by: Admin: 06/07/20 22:13 Dose: 30 mg Documented by: Admin: 06/07/20 13:30 Dose: 30 mg Documented by: BASILIA Magnesium Hydroxide (Milk Of Magnesia) 30 ml PO BID PRN PRN Reason: Constipation Melatonin (Melatonin) 9 mg PO BEDTIME PRN PRN Reason: Insomnia Morphine Sulfate (Morphine) 2 mg IVPUSH Q1H PRN PRN Reason: Breakthrough Pain Last Admin: 06/07/20 16:22 Dose: 2 mg Documented by: Admin: 06/07/20 14:52 Dose: 2 mg Documented by: BASILIA Ondansetron HCl (Zofran) 4 mg IVPUSH Q4H PRN PRN Reason: Nausea/Vomiting Oxycodone/Acetaminophen (Percocet 325-5 Mg) 1 - 2 tab PO Q4H PRN PRN Reason: Pain (moderate 4-6) Last Admin: 06/08/20 05:19 Dose: 2 tab Documented by: Admin: 06/07/20 18:10 Dose: 2 tab Documented by: Admin: 06/07/20 13:53 Dose: 2 tab Documented by: BASILIA Sertraline HCl (Zoloft) 100 mg PO DAILY [facility] Last Admin: 06/08/20 07:59 Dose: 100 mg Documented by: BASILIA Tamsulosin HCl (Flomax) 0.4 mg PO DAILY [facility] Last Admin: 06/08/20 07:59 Dose: 0.4 mg Documented by: BASILIA - Assessment Assessment (Free Text/Narrative):: Patient is a pleasant 64 y/o male, POD #1 following a left total knee arthroplasty for osteoarthritis of the left knee. Patient tolerated surgery well with no complications. Some post-operative hypertension yesterday, likely related to pain. Blood pressure readings this morning are within normal limits. Patient was up to chair and ambulated 75ft with FWW with PT this morning. Pain while laying in bed is 6/10. Tolerating regular diet well. - Plan Plan (Free Text/Narrative):: Patient to continue working with PT and OT while inpatient. Encouraged patient to increase liquid intake to help increase urine output. Orthopedic provider will perform dressing change tomorrow when rounding. Anticipate discharge late Sunday evening or morning.
[2020-06-08] MEDS: Morphine 2 MG/ML SYRINGE IVPUSH PRN ×2 (15:35→19:09)
[2020-06-08] MEDS: Cyclobenzaprine 10 MG Tab PO SCH (20:58)
[2020-06-09] MEDS: Ketorolac 30 MG/ML SDV IVPUSH SCH (05:50)
[2020-06-09] MEDS: Acetaminophen/oxyCODONE 325-5 MG Tab PO PRN ×4 (05:54→20:51)
[2020-06-09] MEDS: Tiotropium BR/Olodaterol HCL 4 GM Inhalation Spray 2.5mcg/1 dose; 10 doses INH SCH (07:29)
[2020-06-09] MEDS: Tamsulosin 0.4 MG Cap.ER PO SCH (08:09)
[2020-06-09] MEDS: Enoxaparin 30 MG/0.3 ML Syringe SUBCUT SCH (08:09)
[2020-06-09] MEDS: Nozin Nasal Sanitizer NASBOTH SCH ×2 (08:09→20:48)
[2020-06-09] MEDS: Docusate Sodium 100 MG Cap PO SCH ×2 (08:10→20:48)
[2020-06-09] MEDS: Sertraline 50 MG Tab PO SCH (08:10)
--- NOTE | 2020-06-09 12:08 | PCM.SURGPN ---
- General Info Date of Service: 06/09/20 Date of Surgery/Procedure: 06/07/20 Post-Op Diagnosis: Left Knee Osteoarthritis Functional Status: Reports: Pain Controlled, Tolerating Diet, Ambulating (with FWW ), Urinating, Incentive Spirometry - Review of Systems General: Reports: No Symptoms HEENT: Reports: No Symptoms Pulmonary: Reports: No Symptoms Cardiovascular: Reports: No Symptoms Gastrointestinal: Reports: No Symptoms Genitourinary: Reports: No Symptoms Musculoskeletal: Reports: Leg Pain, Joint Pain (Left Knee ), Joint Swelling Skin: Reports: Bruising (Left Knee ) Neurological: Reports: No Symptoms Psychiatric: Reports: No Symptoms - Patient Data Vitals - Most Recent: Last Vital Signs Temp 97.2 F 06/09/20 10:19 Pulse 94 06/09/20 10:19 Resp 18 06/09/20 10:19 BP 112/46 L 06/09/20 10:19 Pulse Ox 93 L 06/09/20 10:19 Weight - Most Recent: 259 lb 15.999 oz I&O - Last 24 Hours: Intake & Output 06/08/20 06/09/20 06/09/20 22:59 06:59 14:59 Intake Total 1240 500 Output Total 450 100 Balance 1240 50 -100 Med Orders - Current: Current Medications Acetaminophen (Tylenol) 650 mg PO Q4H PRN PRN Reason: Pain/Fever Hydrocodone Bitart/Acetaminophen (Lynn 325-5 Mg) 1 tab PO Q3H PRN PRN Reason: Pain (mild 1-3) Albuterol (Ventolin Hfa) 0 gm INH Q4H PRN PRN Reason: Shortness of Breath Bandage/Support Products ( Nasal Cognos Architect) 1 applic NASBOTH BID [facility] Stop: 06/13/20 21:01 Last Admin: 06/09/20 08:09 Dose: 1 applic Documented by: Cyclobenzaprine HCl (Flexeril) 10 mg PO BEDTIME [facility] Last Admin: 06/08/20 20:58 Dose: 10 mg Documented by: Docusate Sodium (Colace) 100 mg PO BID [facility] Last Admin: 06/09/20 08:10 Dose: 100 mg Documented by: Enoxaparin Sodium (Lovenox) 30 mg SUBCUT DAILY [facility] Last Admin: 06/09/20 08:09 Dose: 30 mg Documented by: Magnesium Hydroxide (Milk Of Magnesia) 30 ml PO BID PRN PRN Reason: Constipation Melatonin (Melatonin) 9 mg PO BEDTIME PRN PRN Reason: Insomnia Morphine Sulfate (Morphine) 2 mg IVPUSH Q1H PRN PRN Reason: Breakthrough Pain Last Admin: 06/08/20 19:09 Dose: 2 mg Documented by: Ondansetron HCl (Zofran) 4 mg IVPUSH Q4H PRN PRN Reason: Nausea/Vomiting Oxycodone/Acetaminophen (Percocet 325-5 Mg) 1 - 2 tab PO Q4H PRN PRN Reason: Pain (moderate 4-6) Last Admin: 06/09/20 10:17 Dose: 2 tab Documented by: Sertraline HCl (Zoloft) 100 mg PO DAILY [facility] Last Admin: 06/09/20 08:10 Dose: 100 mg Documented by: Tamsulosin HCl (Flomax) 0.4 mg PO DAILY [facility] Last Admin: 06/09/20 08:09 Dose: 0.4 mg Documented by: Discontinued Medications Bupivacaine HCl (Marcaine 0.5%) Confirm Administered Dose 30 ml .ROUTE .STK-MED ONE Stop: 06/07/20 06:36 Fentanyl (Sublimaze) Confirm Administered Dose 100 mcg .ROUTE .STK-MED ONE Stop: 06/07/20 08:35 Cefazolin Sodium/Dextrose 2 gm (/ Premix) 50 mls @ 100 mls/hr IV ONETIME ONE Stop: 06/07/20 08:59 Last Admin: 06/07/20 09:55 Dose: 100 mls/hr Documented by: Lactated Ringer's (Ringers, Lactated) 1,000 mls @ 75 mls/hr IV ASDIRECTED [facility] Last Admin: 06/07/20 08:19 Dose: 75 mls/hr Documented by: Tranexamic Acid 1,000 mg/ (Sodium Chloride) 60 mls @ 240 mls/hr IV ONETIME ONE Stop: 06/07/20 08:44 Last Admin: 06/07/20 09:56 Dose: 240 mls/hr Documented by: Tranexamic Acid 1,000 mg/ (Sodium Chloride) 60 mls @ 240 mls/hr IV ONETIME PRN PRN Reason: IF REQUESTED Lactated Ringer's (Ringers, Lactated) Confirm Administered Dose 1,000 mls @ as directed .ROUTE .STK-MED ONE Stop: 06/07/20 10:52 Sodium Chloride (Normal Saline) 1,000 mls @ 125 mls/hr IV ASDIRECTED [facility] Last Admin: 06/08/20 05:28 Dose: 125 mls/hr Documented by: Cefazolin Sodium/Dextrose 1 gm (/ Premix) 50 mls @ 100 mls/hr IV Q8H [facility] Stop: 06/08/20 08:29 Last Admin: 06/08/20 07:58 Dose: 100 mls/hr Documented by: Ketorolac Tromethamine (Toradol) 30 mg IVPUSH Q8H [facility] Stop: 06/09/20 06:01 Last Admin: 06/09/20 05:50 Dose: 30 mg Documented by: Midazolam HCl (Versed 1 Mg/Ml) Confirm Administered Dose 2 mg .ROUTE .STK-MED ONE Stop: 06/07/20 08:36 Midazolam HCl (Versed 1 Mg/Ml) Confirm Administered Dose 2 mg .ROUTE .STK-MED ONE Stop: 06/07/20 11:14 Povidone Iodine (Betadine 10% Soln) Confirm Administered Dose 1 ml .ROUTE .STK- MED ONE Stop: 06/07/20 06:36 Last Admin: 06/07/20 10:40 Dose: 15 ml Documented by: Propofol (Diprivan 20 Ml) Confirm Administered Dose 200 mg .ROUTE .STK-MED ONE Stop: 06/07/20 08:36 Propofol (Diprivan 20 Ml) Confirm Administered Dose 200 mg .ROUTE .STK-MED ONE Stop: 06/07/20 10:52 - Exam Wound/Incisions: Dressing Dry and Intact, No Drainage General: Alert, Oriented, Cooperative Extremities: Joint Swelling (Left Knee ), Leg Pain, Limited Range of Motion Skin: Dry, Intact Neurological: No New Focal Deficit Psy/Mental Status: Alert, Normal Affect, Normal Mood Sepsis Event Note - Evaluation Sepsis Screening Result: No Definite Risk - Focused Exam Vital Signs: Vital Signs Temp Pulse Resp BP BP Pulse Ox 06/09/20 10:19 97.2 F 94 18 112/46 L 93 L 06/09/20 07:00 98.5 F 95 18 156/82 H 93 L 06/09/20 02:19 98.0 F 97 18 153/75 H 90 L - Problem List & Annotations (1) Status post total left knee replacement SNOMED Code(s): 2656569828830, 9555087089189 Code(s): Z96.652 - PRESENCE OF LEFT ARTIFICIAL KNEE JOINT Status: Acute Current Visit: Yes - Problem List Review Problem List Initiated/Reviewed/Updated: Yes - My Orders Last 24 Hours: Active Orders 24 hr Category Date Time Status Admission Status [Patient Status] [ADT] Routine ADT 06/08/20 12:00 Active Convert IV to Saline Lock [OM.PC] Routine Oth 06/08/20 16:51 Ordered Medication Orders Acetaminophen (Tylenol) 650 mg PO Q4H PRN PRN Reason: Pain/Fever Hydrocodone Bitart/Acetaminophen (Lynn 325-5 Mg) 1 tab PO Q3H PRN PRN Reason: Pain (mild 1-3) Albuterol (Ventolin Hfa) 0 gm INH Q4H PRN PRN Reason: Shortness of Breath Bandage/Support Products ( Nasal Cognos Architect) 1 applic NASBOTH BID [facility] Stop: 06/13/20 21:01 Last Admin: 06/09/20 08:09 Dose: 1 applic Documented by: Admin: 06/08/20 20:57 Dose: 1 applic Documented by: Admin: 06/08/20 08:00 Dose: 1 applic Documented by: Admin: 06/07/20 22:12 Dose: 1 applic Documented by: Admin: 06/07/20 08:21 Dose: 1 applic Documented by: ABDIRAHMAN Cyclobenzaprine HCl (Flexeril) 10 mg PO BEDTIME [facility] Last Admin: 06/08/20 20:58 Dose: 10 mg Documented by: Admin: 06/07/20 22:12 Dose: 10 mg Documented by: DHARA Docusate Sodium (Colace) 100 mg PO BID [facility] Last Admin: 06/09/20 08:10 Dose: 100 mg Documented by: Admin: 06/08/20 20:58 Dose: 100 mg Documented by: Admin: 06/08/20 07:59 Dose: 100 mg Documented by: Admin: 06/07/20 22:12 Dose: 100 mg Documented by: DHARA Enoxaparin Sodium (Lovenox) 30 mg SUBCUT DAILY [facility] Last Admin: 06/09/20 08:09 Dose: 30 mg Documented by: Admin: 06/08/20 07:59 Dose: 30 mg Documented by: BASILIA Magnesium Hydroxide (Milk Of Magnesia) 30 ml PO BID PRN PRN Reason: Constipation Melatonin (Melatonin) 9 mg PO BEDTIME PRN PRN Reason: Insomnia Morphine Sulfate (Morphine) 2 mg IVPUSH Q1H PRN PRN Reason: Breakthrough Pain Last Admin: 06/08/20 19:09 Dose: 2 mg Documented by: Admin: 06/08/20 15:35 Dose: 2 mg Documented by: Admin: 06/07/20 16:22 Dose: 2 mg Documented by: Admin: 06/07/20 14:52 Dose: 2 mg Documented by: BASILIA Ondansetron HCl (Zofran) 4 mg IVPUSH Q4H PRN PRN Reason: Nausea/Vomiting Oxycodone/Acetaminophen (Percocet 325-5 Mg) 1 - 2 tab PO Q4H PRN PRN Reason: Pain (moderate 4-6) Last Admin: 06/09/20 10:17 Dose: 2 tab Documented by: Admin: 06/09/20 05:54 Dose: 2 tab Documented by: Admin: 06/08/20 22:22 Dose: 2 tab Documented by: Admin: 06/08/20 16:53 Dose: 2 tab Documented by: Admin: 06/08/20 12:34 Dose: 2 tab Documented by: Admin: 06/08/20 05:19 Dose: 2 tab Documented by: Admin: 06/07/20 18:10 Dose: 2 tab Documented by: Admin: 06/07/20 13:53 Dose: 2 tab Documented by: BASILIA Sertraline HCl (Zoloft) 100 mg PO DAILY [facility] Last Admin: 06/09/20 08:10 Dose: 100 mg Documented by: Admin: 06/08/20 07:59 Dose: 100 mg Documented by: BASILIA Tamsulosin HCl (Flomax) 0.4 mg PO DAILY [facility] Last Admin: 06/09/20 08:09 Dose: 0.4 mg Documented by: Admin: 06/08/20 07:59 Dose: 0.4 mg Documented by: BASILIA - Assessment Assessment (Free Text/Narrative):: Patient is a pleasant 64 y/o, POD #2, s/p left total knee arthroplasty. Was admitted for post-operative management. Patient tolerated the surgery well without any complications. Has had some difficulties with pain management and post-operative hypertension during his stay. Pain improved significantly y evening after taking the ALDO wrap off his knee. Old dressing removed by ortho provider; incision site dry and intact without drainage. Patient showed much improvement with ADLs this morning with OT; rated pain 5/10 while getting dressed. PT completed this morning; able to ambulate in hallway with FWW and safely completed 1 step. - Plan Plan (Free Text/Narrative):: * Old dressing removed by Ortho team this morning; steri strips left on. Ortho team will apply new dressing prior to discharge. * PT and OT assessments in agreement with patient discharge to home with home health * Patient to complete PT this afternoon * Anticipate discharge to home with Home Health tomorrow morning * Follow up with Orthopedic clinic in 2 weeks; advised to call sooner if any questions/concerns arise * Patient expressed understanding and was agreeable to this plan
[2020-06-09] MEDS: Cyclobenzaprine 10 MG Tab PO SCH (20:48)
[2020-06-10] MEDS: Acetaminophen/oxyCODONE 325-5 MG Tab PO PRN ×3 (02:05→12:07)
[2020-06-10] MEDS: Tamsulosin 0.4 MG Cap.ER PO SCH (10:27)
[2020-06-10] MEDS: Sertraline 50 MG Tab PO SCH (10:28)
[2020-06-10] MEDS: Docusate Sodium 100 MG Cap PO SCH (10:28)
[2020-06-10] MEDS: Enoxaparin 30 MG/0.3 ML Syringe SUBCUT SCH (10:28)
[2020-06-10] MEDS: Nozin Nasal Sanitizer NASBOTH SCH (10:30)
[2020-06-10] MEDS: Tiotropium BR/Olodaterol HCL 4 GM Inhalation Spray 2.5mcg/1 dose; 10 doses INH SCH (10:31)
--- NOTE | 2020-06-10 10:39 | PCM.DCSUM1 ---
Discharge Summary - Hospital Course HPI Initial Comments: 64 year old male with severe left knee osteoarthritis that has gotten significantly worse over last month making it difficult to walk admitted for TKA. Diagnosis: Stroke: No Modified Raleigh Scale: No Symptoms at All Modified Raleigh Scale Score: 0 - Discharge Data Discharge Date: 06/10/20 Discharge Disposition: Home, Self-Care 01 Condition: Good - Referral to Home Health Date of Face to Face Encounter: 06/10/20 Reason for Homebound Status: S/P Total knee Arthroplasty, unable to drive Primary Care Physician: aMt Sahu NP Skilled Need: Physical Therapy for ambulation, ROM and strengthening - Discharge Diagnosis/Problem(s) (1) Status post total left knee replacement SNOMED Code(s): 6958300069914, [id number] ICD Code: Z96.652 - PRESENCE OF LEFT ARTIFICIAL KNEE JOINT Status: Acute Current Visit: Yes (2) Degenerative arthritis of left knee SNOMED Code(s): 147109947330074 ICD Code: M17.12 - UNILATERAL PRIMARY OSTEOARTHRITIS, LEFT KNEE Status: Chronic Current Visit: No Qualifiers: Osteoarthritis type: primary Qualified Code(s): M17.12 - Unilateral primary osteoarthritis, left knee (3) Knee pain, chronic SNOMED Code(s): 64139847 ICD Code: M25.569 - PAIN IN UNSPECIFIED KNEE; G89.29 - OTHER CHRONIC PAIN Status: Chronic Current Visit: No Qualifiers: Laterality: left Qualified Code(s): M25.562 - Pain in left knee; G89.29 - Other chronic pain - Patient Summary/Data Operative Procedure(s) Performed: Left Total Knee Arthroplasty Complications: None Consults: Consultations 06/07/20 12:05 Consult to Case Management/Vat Overhauler [CONS] Routine Comment: Physician Instructions: Service(s) to be Consulted: Case Management Reason for Consult: Plan for Discharge OT Evaluation and Treatment [CONS] Routine Please Evaluate and Treat. OT Reason for Consult: ADL's Special Instructions: s/p Left TKA This query below is only for informational purposes and is not editable. PT Evaluation and Treatment [CONS] Routine Please Evaluate and Treat. PT Reason for Consult: Post op Ortho Surgery This query below is only for informational purposes and is not editable. PT Evaluation and Treatment [CONS] Routine Please Evaluate and Treat. PT Reason for Consult: Post op Ortho Surgery Knee Pending Discharge: Yes, 1- 2 days Special Instructions: Schedule first outpatient PT appointment in 3-5 day post discharge. This query below is only for informational purposes and is not editable. Hospital Course: Underwent procedure without complications. Had some difficulty with pain control post op. Progressed with PT over POD #2-3 and was able to navigate stairs and transitions. Pain better controlled. Dressing removed POD #2, incision clean and dry, no drainage. Plan home with Home Health to follow. Follow up Ortho Clinic in 2 weeks. - Patient Instructions Diet: Usual Diet as Tolerated Activity: Apply Ice, As Tolerated, Full Weight Bearing Driving: Do Not Drive Showering/Bathing: May Shower Wound/Incision Care: Keep Operative Site/Wound Site Clean and Dry Notify Provider of: Fever, Increased Pain, Swelling and Redness, Drainage, Nausea and/or Vomiting - Discharge Plan *PRESCRIPTION DRUG MONITORING PROGRAM REVIEWED*: No *COPY OF PRESCRIPTION DRUG MONITORING REPORT IN PATIENT CORINE: No Prescriptions/Med Rec: Aspirin 325 mg PO BID 30 Days #60 tablet oxyCODONE HCl/Acetaminophen [Percocet 5-325 mg Tablet] 1 - 2 each PO Q6HR PRN #50 tablet PRN Reason: Pain Home Medications: Home Meds Albuterol [Ventolin HFA] 2 puff INH Q4H PRN 11/22/16 [History] Tamsulosin [Flomax] 0.4 mg PO DAILY 10/15/17 [History] Sertraline [Zoloft] 1 tab PO DAILY 05/16/20 [History] Cyclobenzaprine [Flexeril] 10 mg PO BEDTIME 05/21/20 [History] Diclofenac Sodium [Voltaren 1% Gel] 1 applic TOP QID PRN 05/21/20 [History] traMADol HCl [Tramadol HCl] 50 mg PO Q6H PRN #36 tablet 05/25/20 [Rx] Diclofenac Potassium [Cataflam] 50 mg PO TID 06/03/20 [History] Tiotropium Br/Olodaterol HCl [Stiolto Respimat Inhal [place]rett] 2 puff IH DAILY 06/03/20 [History] Aspirin 325 mg PO BID 30 Days #60 tablet 06/10/20 [Rx] oxyCODONE HCl/Acetaminophen [Percocet 5-325 mg Tablet] 1 - 2 each PO Q6HR PRN #50 tablet 06/10/20 [Rx] Oxygen Therapy Mode: Room Air Referrals: Miguel Pearl MD [Physician] - 06/22/20 1:30 pm (Please arrive 15 minutes early to register for your appointment.) - Discharge Summary/Plan Comment DC Time >30 min.: No - General Info Date of Service: 06/10/20 Functional Status: Reports: Pain Controlled, Tolerating Diet, Ambulating, Urinating - Review of Systems General: Reports: No Symptoms HEENT: Reports: No Symptoms Pulmonary: Reports: No Symptoms Cardiovascular: Reports: No Symptoms Gastrointestinal: Reports: No Symptoms Genitourinary: Reports: No Symptoms Musculoskeletal: Reports: Leg Pain Skin: Reports: No Symptoms Neurological: Reports: No Symptoms Psychiatric: Reports: No Symptoms - Patient Data Vitals - Most Recent: Last Vital Signs Temp 36.7 C 06/10/20 07:00 Pulse 84 06/10/20 07:00 Resp 18 06/10/20 07:00 BP 147/92 H 06/10/20 07:00 Pulse Ox 97 06/10/20 07:00 Weight - Most Recent: 117.934 kg I&O - Last 24 hours: Intake & Output 06/09/20 06/10/20 06/10/20 22:59 06:59 14:59 Intake Total 1000 800 500 Output Total 850 1350 400 Balance 150 -550 100 Med Orders - Current: Current Medications Acetaminophen (Tylenol) 650 mg PO Q4H PRN PRN Reason: Pain/Fever Hydrocodone Bitart/Acetaminophen (Lincoln 325-5 Mg) 1 tab PO Q3H PRN PRN Reason: Pain (mild 1-3) Albuterol (Ventolin Hfa) 0 gm INH Q4H PRN PRN Reason: Shortness of Breath Bandage/Support Products ( Nasal Quality Rep) 1 applic NASBOTH BID [facility] Stop: 06/13/20 21:01 Last Admin: 06/10/20 10:30 Dose: Not Given Documented by: Cyclobenzaprine HCl (Flexeril) 10 mg PO BEDTIME [facility] Last Admin: 06/09/20 20:48 Dose: 10 mg Documented by: Docusate Sodium (Colace) 100 mg PO BID [facility] Last Admin: 06/10/20 10:28 Dose: 100 mg Documented by: Enoxaparin Sodium (Lovenox) 30 mg SUBCUT DAILY [facility] Last Admin: 06/10/20 10:28 Dose: 30 mg Documented by: Magnesium Hydroxide (Milk Of Magnesia) 30 ml PO BID PRN PRN Reason: Constipation Melatonin (Melatonin) 9 mg PO BEDTIME PRN PRN Reason: Insomnia Morphine Sulfate (Morphine) 2 mg IVPUSH Q1H PRN PRN Reason: Breakthrough Pain Last Admin: 06/08/20 19:09 Dose: 2 mg Documented by: Ondansetron HCl (Zofran) 4 mg IVPUSH Q4H PRN PRN Reason: Nausea/Vomiting Oxycodone/Acetaminophen (Percocet 325-5 Mg) 1 - 2 tab PO Q4H PRN PRN Reason: Pain (moderate 4-6) Last Admin: 06/10/20 07:46 Dose: 2 tab Documented by: Sertraline HCl (Zoloft) 100 mg PO DAILY [facility] Last Admin: 06/10/20 10:28 Dose: 100 mg Documented by: Tamsulosin HCl (Flomax) 0.4 mg PO DAILY [facility] Last Admin: 06/10/20 10:27 Dose: 0.4 mg Documented by: Discontinued Medications Bupivacaine HCl (Marcaine 0.5%) Confirm Administered Dose 30 ml .ROUTE .STK-MED ONE Stop: 06/07/20 06:36 Fentanyl (Sublimaze) Confirm Administered Dose 100 mcg .ROUTE .STK-MED ONE Stop: 06/07/20 08:35 Cefazolin Sodium/Dextrose 2 gm (/ Premix) 50 mls @ 100 mls/hr IV ONETIME ONE Stop: 06/07/20 08:59 Last Admin: 06/07/20 09:55 Dose: 100 mls/hr Documented by: Lactated Ringer's (Ringers, Lactated) 1,000 mls @ 75 mls/hr IV ASDIRECTED [facility] Last Admin: 06/07/20 08:19 Dose: 75 mls/hr Documented by: Tranexamic Acid 1,000 mg/ (Sodium Chloride) 60 mls @ 240 mls/hr IV ONETIME ONE Stop: 06/07/20 08:44 Last Admin: 06/07/20 09:56 Dose: 240 mls/hr Documented by: Tranexamic Acid 1,000 mg/ (Sodium Chloride) 60 mls @ 240 mls/hr IV ONETIME PRN PRN Reason: IF REQUESTED Lactated Ringer's (Ringers, Lactated) Confirm Administered Dose 1,000 mls @ as directed .ROUTE .STK-MED ONE Stop: 06/07/20 10:52 Sodium Chloride (Normal Saline) 1,000 mls @ 125 mls/hr IV ASDIRECTED [facility] Last Admin: 06/08/20 05:28 Dose: 125 mls/hr Documented by: Cefazolin Sodium/Dextrose 1 gm (/ Premix) 50 mls @ 100 mls/hr IV Q8H [facility] Stop: 06/08/20 08:29 Last Admin: 06/08/20 07:58 Dose: 100 mls/hr Documented by: Ketorolac Tromethamine (Toradol) 30 mg IVPUSH Q8H [facility] Stop: 06/09/20 06:01 Last Admin: 06/09/20 05:50 Dose: 30 mg Documented by: Midazolam HCl (Versed 1 Mg/Ml) Confirm Administered Dose 2 mg .ROUTE .STK-MED ONE Stop: 06/07/20 08:36 Midazolam HCl (Versed 1 Mg/Ml) Confirm Administered Dose 2 mg .ROUTE .STK-MED ONE Stop: 06/07/20 11:14 Povidone Iodine (Betadine 10% Soln) Confirm Administered Dose 1 ml .ROUTE .STK- MED ONE Stop: 06/07/20 06:36 Last Admin: 06/07/20 10:40 Dose: 15 ml Documented by: Propofol (Diprivan 20 Ml) Confirm Administered Dose 200 mg .ROUTE .STK-MED ONE Stop: 06/07/20 08:36 Propofol (Diprivan 20 Ml) Confirm Administered Dose 200 mg .ROUTE .STK-MED ONE Stop: 06/07/20 10:52 - Exam General: Reports: Alert, Oriented HEENT: Reports: Pupils Equal, Pupils Reactive, EOMI Neck: Reports: Supple Lungs: Reports: Normal Respiratory Effort Cardiovascular: Reports: Regular Rate, Regular Rhythm GI/Abdominal Exam: Normal Bowel Sounds, Soft, Non-Tender, No Distention (Male) Exam: Deferred Rectal (Males) Exam: Deferred Extremities: Normal Inspection, Other (ROM 10-88) Skin: Reports: Warm, Dry Wound/Incisions: Reports: Healing Well, No Drainage Neurological: Reports: No New Focal Deficit Psy/Mental Status: Reports: Alert, Normal Affect, Normal Mood
[2020-06-10 10:49] VITALS: BP 123/69; PULSE 98
--- NOTE | 2020-06-16 13:55 | OR ---
DATE OF PROCEDURE: 06/07/2020 SURGEON: Miguel Pearl MD PREOPERATIVE DIAGNOSIS: Osteoarthritis, left knee. POSTOPERATIVE DIAGNOSIS: Severe osteoarthritis, left knee, with varus. PROCEDURE PERFORMED: Left total knee arthroplasty using [employer] Persona components with a size 9 femur, G tibia, 38 mm patella, and 10 mm polyethylene. SENIOR BACK END JAVA DEVELOPER: DARA Jean Baptiste ANESTHESIA: Spinal with sedation. INDICATIONS: Mr. Doshi is a 64-year-old gentleman with a history of progressive left knee pain which has gotten dramatically worse over the last couple of months. He is having difficulty with weightbearing and ambulation. X-rays reveal significant osteoarthritis with varus collapse. He now presents for left total knee arthroplasty. Risks, benefits, and potential complications were discussed. DESCRIPTION OF PROCEDURE: After adequate anesthesia was obtained, the patient was placed supine with a tourniquet about the left upper thigh. The left leg was prepped and draped in a sterile fashion. The leg was exsanguinated and tourniquet inflated to 300 mmHg pressure. A longitudinal incision was made over the anterior knee, carried down through the subcutaneous tissues, and a medial parapatellar arthrotomy was performed. Moderate effusion was present. Physician lead dental assistant utilized for retraction, limb positioning, and exposure. Anterior horn of the medial meniscus and a portion of the fat pad were excised. Patella was partially everted, and the posterior aspect of the patella was resected with an oscillating saw. The knee was flexed, and the intramedullary canal was drilled. Intramedullary guide was placed. This was secured to the distal femur, and the distal femur was then cut. Extramedullary tibial jig was placed. This was aligned and secured to the proximal tibia. Proximal tibia was then resected with an oscillating saw. A portion of the bone was removed along with the medial and lateral menisci. Attention was returned to the femur. A sizing guide was placed, and a size 9 was selected. Drill holes were made for the distal cutting jig. This was secured to the femur, and remaining cuts were then made. Trial femur was placed, peg holes were drilled, and an intercondylar notch cut was completed for a posterior cruciate-sacrificing component. The tibia was sized to a G component. This was pinned in position. A 10 mm trial spacer was placed, and the knee was taken through range of motion. This actually showed excellent balance in both flexion and extension. Full extension was obtained. Articular trial was removed, and tibial preparation was completed with the drill and punch. The posterior patella was drilled for a 38 mm patellar component. All trials were removed. The knee was thoroughly irrigated, and bone surfaces were dried. The components were cemented in place. Excess cement was removed. The knee was held in full extension with a 10 mm trial articular spacer as the cement cured. The knee was taken through range of motion, again found to have full extension, flexion easily beyond 120 degrees, excellent balance in flexion and extension, and the patella tracked very well with no lateral release. The trial was removed. The knee was irrigated, and the final polyethylene was snapped into position. The knee was then irrigated with a dilute Betadine solution which was left in place for 2-1/2 minutes. This was then irrigated, and the knee was closed with #2 Ethibond in interrupted fashion at the capsule, 2-0 Vicryl and a running 3-0 Monocryl on the skin, and Steri-Strips were applied. Light compressive dressing was then placed. The patient tolerated the procedure very well. There were no complications. He was taken from the operating room in stable condition. Miguel Pearl MD /[id number]
== END 2020-06-10 12:30 | disposition home or self-care (01) | DRG 470 ==
LOC: JP.SDS 07:05 → JP.MS 12:05
PROVIDERS: ADMIT Specialist; ATTEND Specialist
PROC: 0SRD0J9 Replacement of Left Knee Joint with Synthetic Substitute, Cemented, Open Approach (ICD-10-PCS; principal; 2020-06-08)
DX: M17.12 Unilateral primary osteoarthritis, left knee (principal); G89.29 Other chronic pain; J44.9 Chronic obstructive pulmonary disease, unspecified; F32.9 Major depressive disorder, single episode, unspecified; M54.5 Low back pain; E78.2 Mixed hyperlipidemia; R73.01 Impaired fasting glucose; I97.3 Postprocedural hypertension; Z79.899 Other long term (current) drug therapy
CPT/HCPCS: 36415; 73560-26-LT; 73560-LT; 85027; 86850; 86900; 86901; 94640; 97110-GP; 97116-GP; 97161-GP; 97165-GO; 97530-GP; 97535-GO; 97535-GP; A9270-GY; C1713; C1776; J0690; J1650; J1885; J2250; J2270; J2704; J3010; J3490; J7030; J7120

== ENCOUNTER 2020-09-28 19:28 | Emergency (ER) | payer MEDICARE, MEDICAID ==
[2020-09-28 19:47] VITALS: BP 144/72; PULSE 119
--- NOTE | 2020-09-28 20:00 | EDM.PDOC ---
ED HPI GENERAL MEDICAL PROBLEM - General Chief Complaint: General Stated Complaint: FEELS LIKE HEAD IS SPINNING Time Seen by Provider: 09/28/20 20:00 Source of Information: Reports: Patient History Limitations: Reports: No Limitations - History of Present Illness INITIAL COMMENTS - FREE TEXT/NARRATIVE: Patient presents emergency room today secondary to dizzy lightheaded episodes have been going on for at least 2 weeks that he was going to go the clinic today secondary to increasing episodes in nature but he laid down and took a nap around 11:00 and when he woke up it was after the clinic noticed he states that initially episodes were 1-2 times a day now he reports many times a day heat will not give a specific amount he does continue to drive and do his normal activities he states that he and he just feels off balance and then it slowly resolves he also notices increase in dizziness sensation whenever he looks left and right he has not had this before denies any acute or recent illnesses any other associated symptoms no chest pain discomfort shortness of breath difficulty breathing or symptoms otherwise of himself to the emergency room tonight for further evaluation despite reported episodes of dizzyness. That he did talk to his daughter about this several times and she suggested that it was vertigo had any OTC medications PMH--BPH Meds--flomax NKDA Tob--1ppd EtOH--rare Drugs--denies Duration: Week(s): (2+ weeks, increasing in nature) - Related Data Allergies Allergy/AdvReac Type Severity Reaction Status Date / Time Egg Derived Allergy Cannot Verified 09/28/20 19:47 Remember hylan G-F 20 [From Synvisc] Allergy Cannot Verified 09/28/20 19:47 Remember celecoxib [From Celebrex] AdvReac Nausea Verified 09/28/20 19:47 Home Meds: Home Meds Albuterol [Ventolin HFA] 2 puff INH Q4H PRN 11/22/16 [History] Tamsulosin [Flomax] 0.4 mg PO DAILY 10/15/17 [History] Tiotropium Br/Olodaterol HCl [Stiolto Respimat Inhal Conde] 2 puff IH DAILY 06/03/20 [History] Past Medical History HEENT History: Reports: Impaired Vision Other HEENT History: reading glasses Cardiovascular History: Reports: None Respiratory History: Reports: COPD Gastrointestinal History: Reports: Diverticulosis Genitourinary History: Reports: Prostate Disorder Musculoskeletal History: Reports: Back Pain, Chronic, Fracture, Other (See Below) Other Musculoskeletal History: low back pain. L hip pain Neurological History: Reports: Other (See Below) Other Neuro History: dizzy after coughing Psychiatric History: Reports: Anxiety, Depression, Panic Attack Endocrine/Metabolic History: Reports: Obesity/BMI 30+ Hematologic History: Reports: None Immunologic History: Reports: None Oncologic (Cancer) History: Reports: None Dermatologic History: Reports: None - Infectious Disease History Infectious Disease History: Reports: Chicken Pox, Measles, Mumps, Scarlet Fever, Shingles - Past Surgical History Head Surgeries/Procedures: Reports: None HEENT Surgical History: Reports: None Cardiovascular Surgical History: Reports: None Respiratory Surgical History: Reports: None GI Surgical History: Reports: Colonoscopy Other Male Surgeries/Procedures: DIFFICULTY WITH URINATING Endocrine Surgical History: Reports: None Neurological Surgical History: Reports: Lumbar Spine, Other (See Below) Other Neurological Surgeries/Procedures: BACK SURGERY NOT SURE WHAT WAS DONE Musculoskeletal Surgical History: Reports: Knee Replacement, Other (See Below) Other Musculoskeletal Surgeries/Procedures:: R TKA 2015. L TKA 06/07/20 Oncologic Surgical History: Reports: None Dermatological Surgical History: Reports: None Social & Family History - Family History Family Medical History: No Pertinent Family History HEENT: Reports: Impaired Vision Cardiac: Reports: Bypass, Heart Failure, [place] Respiratory: Reports: COPD OBGYN: Reports: Recurrent Spontaneous Musculoskeletal: Reports: Back pain, Chronic Neurological: Reports: Dementia Psychiatric: Reports: Bipolar - Tobacco Use Tobacco Use Status *Q: Current Every Day Tobacco User Years of Tobacco use: 35 Packs/Tins Daily: 1 - Caffeine Use Caffeine Use: Reports: Coffee Other Caffeine Use: 4-5 CUPS COFFEE /DAY Caffeine Use Comment: 3-4 cups of coffee per day - Recreational Drug Use Recreational Drug Use: No - Living Situation & Occupation Living situation: Reports: (Lives with his who is a chronic alcoholic. Has a 30-year-old son who has issues with chemical dependency.) ED ROS GENERAL - Review of Systems Review Of Systems: See Below Constitutional: Reports: No Symptoms. Denies: Fever, Chills, Weakness, Fatigue HEENT: Reports: No Symptoms. Denies: Vision Change Respiratory: Reports: No Symptoms. Denies: Shortness of Breath Cardiovascular: Reports: No Symptoms. Denies: Chest Pain, Palpitations, Syncope Endocrine: Reports: No Symptoms GI/Abdominal: Reports: No Symptoms. Denies: Nausea, Vomiting : Reports: No Symptoms Musculoskeletal: Reports: No Symptoms Skin: Reports: No Symptoms Neurological: Reports: Dizziness. Denies: Confusion, Headache, Paresthesia, Syncope, Tremors, Trouble Speaking, Difficulty Walking, Weakness, Change in Speech, Gait Disturbance Psychiatric: Reports: No Symptoms Hematologic/Lymphatic: Reports: No Symptoms Immunologic: Reports: No Symptoms ED EXAM, GENERAL - Physical Exam Exam: See Below Exam Limited By: No Limitations General Appearance: Alert, WD/WN, No Apparent Distress Eye Exam: Bilateral Eye: EOMI, Normal Inspection, PERRL, Vision Changes Ears: Normal External Exam, Normal Canal, Hearing Grossly Normal, Normal TMs Nose: Normal Inspection Throat/Mouth: Normal Inspection, Normal Lips, Normal Oropharynx. No: Normal Teeth (poor dentation/multiple missing teeth) Head: Atraumatic, Normocephalic Neck: Normal Inspection, Supple, Non-Tender, Full Range of Motion. No: Carotid Bruit Respiratory/Chest: No Respiratory Distress, Lungs Clear, Normal Breath Sounds, No Accessory Muscle Use Cardiovascular: Normal Peripheral Pulses, Regular Rate, Rhythm, No Edema, No Murmur Peripheral Pulses: 2+: Radial (L), Radial (R) GI/Abdominal: Normal Bowel Sounds, Soft, Non-Tender (Male) Exam: Deferred Rectal (Males) Exam: Deferred Extremities: Normal Inspection, Normal Range of Motion, Non-Tender, No Pedal Edema, Normal Capillary Refill Neurological: Alert, Oriented, CN II-XII Intact, Normal Cognition, Normal Gait, No Motor/Sensory Deficits, Other (Ordination [id number] and heel lama Romberg was negative nystagmus was noted on exam) Psychiatric: Normal Affect, Normal Mood Skin Exam: Warm, Dry, Intact, Normal Color #1 Interpretation EKG Date: 09/28/20 Time: 21:09 Rhythm: NSR Rate (Beats/Min): 98 [place]: Normal P-Wave: Present (SC-98) QRS: Normal (QRS-92) ST-T: Normal QT: Normal (QT/QTc-337/431) Course - Vital Signs Text/Narrative:: 2235--today's labs and EKG no acute findings troponin was negative at less than 0.017 exam was unremarkable for any acute focal neurological changes CT of the head to be unremarkable faxed radiology report is no evidence of acute intracranial hemorrhage mass-effect or loss of russell-white differentiation at this time patient will be discharged home with diagnosis of vertigo given a prescription of meclizine for as needed usage he will be instructed not to take if he is going to be driving. To side effect of drowsiness he is to follow-up with his primary care provider in the next 3 to 5 days for further evaluation and management verbalized understanding agree with plan of care is ready for discharge Last Recorded V/S: Last Vital Signs Temp 98.0 F 09/28/20 19:41 Pulse 119 H 09/28/20 19:41 Resp 18 09/28/20 19:41 BP 144/72 H 09/28/20 19:41 Pulse Ox 97 09/28/20 19:41 - Orders/Labs/Meds Orders: Active Orders 24 hr Category Date Time Status EKG Documentation Completion [RC] ASDIRECTED Care 09/28/20 20:29 Active EKG 12 Lead [EK] Stat Ther 09/28/20 20:28 Ordered Labs: Laboratory Tests 09/28/20 09/28/20 Range/Units 20:35 20:35 WBC 11.4 H (4.5-11.0) K/uL RBC 4.75 (4.30-5.90) M/uL Hgb 15.2 H D (12.0-15.0) g/dL Hct 47.8 (40.0-54.0) % MCV 101 H (80-98) fL MCH 32 H (27-31) pg MCHC 32 (32-36) % Plt Count 186 (150-400) K/uL Neut % (Auto) 85 H (36-66) % Lymph % (Auto) 8 L (24-44) % [place] % (Auto) 7 H (2-6) % Eos % (Auto) 0 L (2-4) % Baso % (Auto) 0 (0-1) % Sodium 142 (140-148) mmol/L Potassium 4.5 (3.6-5.2) mmol/L Chloride 102 (100-108) mmol/L Carbon Dioxide 27 (21-32) mmol/L Anion Gap 12.9 (5.0-14.0) mmol/L BUN 22 H (7-18) mg/dL Creatinine 1.2 (0.8-1.3) mg/dL Est Cr Clr Drug Dosing 67.36 mL/min Estimated GFR (MDRD) > 60 (>60) Glucose 166 H (74-106) mg/dL Calcium 9.0 (8.5-10.1) mg/dL Magnesium 2.0 (1.8-2.4) mg/dL Troponin I < 0.017 (0.000-0.056) ng/mL - Radiology Interpretation CT Results Date: 09/28/20 (Report no evidence of acute intracranial hemorrhage mass-effect or loss of russell-white differentiation) CT Results Time: 21:30 Departure - Departure Time of Disposition: 22:37 Disposition: Home, Self-Care 01 Condition: Good Clinical Impression: Hyperglycemia, Elevated blood pressure reading, Vertigo - Discharge Information *PRESCRIPTION DRUG MONITORING PROGRAM REVIEWED*: Not Applicable *COPY OF PRESCRIPTION DRUG MONITORING REPORT IN PATIENT CORINE: Not Applicable Instructions: Hyperglycemia, [id number], How to Perform the Coco Maneuver, Vertigo, [id number], Hypertension, Adult, [id number] Referrals: Mat Sahu NP [Primary Care Provider] - Forms: ED Department Discharge Additional Instructions: It is recommended that you follow-up with your primary care provider/family doctor to today's ER visit in the next 3 to 5 days for further evaluation and care You had a noted elevated blood pressure here in the emergency room this should be further evaluated by the next provider Had noted elevated blood glucose here in the emergency room this should further be evaluated by your primary care clinic I have developed the diabetes Discussed today in the emergency room it is felt that your symptoms are related to vertigo I provided you medication as was discussed called Antivert or meclizine please do not use this medication when you are driving as it will cause drowsiness so been given a handout on Coco maneuver which she can try to see if that helps relieve your dizziness Sepsis Event Note (ED) - Evaluation Sepsis Screening Result: No Definite Risk - Focused Exam Vital Signs: Vital Signs Temp Pulse Resp BP Pulse Ox 09/28/20 19:41 98.0 F 119 H 18 144/72 H 97 - My Orders Last 24 Hours: My Active Orders 09/28/20 20:28 EKG 12 Lead [EK] Stat 09/28/20 20:29 EKG Documentation Completion [RC] ASDIRECTED - Assessment/Plan Last 24 Hours: My Active Orders 09/28/20 20:28 EKG 12 Lead [EK] Stat 09/28/20 20:29 EKG Documentation Completion [RC] ASDIRECTED
--- NOTE | 2020-09-28 21:32 | CRLCT ---
INDICATION: Dizziness TECHNIQUE: CT head without contrast. COMPARISON: 10/15/2017 FINDINGS: There is mild age-related cortical atrophy. The ventricles are within normal limits for the patient`s age. There is no mass effect or midline shift. There is no loss of russell-white differentiation. There is no evidence of an acute intracranial hemorrhage. No acute calvarial fracture is seen. Slight paranasal sinus mucosal thickening is noted. The mastoid air cells are clear. The visualized orbits are within normal limits. IMPRESSION: No evidence of an acute intracranial hemorrhage, mass effect or loss of russell-white differentiation. Dictated by Andre Floyd MD @ 09/28/2020 9:29:56 PM Please note that all CT scans at this facility use dose modulation, iterative reconstruction, and/or weight-based dosing when appropriate to reduce radiation dose to as low as reasonably achievable. Dictated by: Andre Floyd MD @ 09/28/2020 21:30:02 (Electronically Signed)
== END 2020-09-28 23:21 | disposition home or self-care (01) ==
LOC: JP.ED 19:28
DX: R03.0 Elevated blood-pressure reading, without diagnosis of hypertension (principal); R73.9 Hyperglycemia, unspecified; R42 Dizziness and giddiness; J44.9 Chronic obstructive pulmonary disease, unspecified; N40.0 Benign prostatic hyperplasia without lower urinary tract symptoms; E66.9 Obesity, unspecified; Z68.34 Body mass index [BMI] 34.0-34.9, adult; Z91.012 Allergy to eggs; Z88.1 Allergy status to other antibiotic agents; Z88.8 Allergy status to other drugs, medicaments and biological substances; Z79.899 Other long term (current) drug therapy
CPT/HCPCS: 36415; 70450; 80048; 83735; 84484; 85025; 93005; 99284-25

== ENCOUNTER 2021-09-26 01:22 | Emergency (ER) | payer MEDICARE, MEDICAID ==
[2021-09-26 01:40] VITALS: PULSE 93
[2021-09-26 01:42] VITALS: BP 142/76
[2021-09-26 03:03] LABS: CORONAVIRUS COVID-19 NAA NEGATIVE (NEGATIVE)
== END 2021-09-26 03:25 | disposition home or self-care (01) ==
LOC: JP.ED 01:22
DX: J06.9 Acute upper respiratory infection, unspecified (principal); J44.9 Chronic obstructive pulmonary disease, unspecified; F41.9 Anxiety disorder, unspecified; F32.9 Major depressive disorder, single episode, unspecified; E66.9 Obesity, unspecified; Z68.32 Body mass index [BMI] 32.0-32.9, adult; Z91.012 Allergy to eggs; Z20.822 Contact with and (suspected) exposure to COVID-19; Z88.1 Allergy status to other antibiotic agents; Z88.8 Allergy status to other drugs, medicaments and biological substances
CPT/HCPCS: 0241U; 36415; 71046; 71046-26; 80053; 83880; 84484; 85025; 86140; 99283; 99283-25